=== PATIENT | female | born 1955 | race Asian ===

== ENCOUNTER 2022-05-20 08:37 | Outpatient (REF) | payer MEDICARE, SELFPAY ==
--- NOTE | ~2022-05-20 | XR_ITS ---
EXAMINATION: XR THORACIC SPINE XR LUMBAR SPINE CLINICAL INFORMATION: Ankylosing spondylitis of unspecified sites. COMPARISON: None TECHNIQUE: Thoracic spine 3 views. Lumbar spine 5 views. FINDINGS: THORACIC SPINE: There is normal thoracic kyphosis. The vertebral heights and alignment are normal. There is loss of the T5-T6 and T6-T7 disc heights with mild endplate spondylosis at the T6-T7 disc level. No aggressive lytic or sclerotic process seen. The paravertebral soft tissues are normal. There is mild dextroscoliosis of mid dorsal spine. No aggressive lytic or sclerotic process seen. CERVICAL SPINE: There is maintained cervical lordosis. There is fusion of the anterior longitudinal ligament. Findings are consistent with ankylosing spondylitis. The neural foramina are patent bilaterally. No visible acute fracture, dislocation or lytic process seen. The prevertebral soft tissues are normal. XR/XR thoracic spine 3V IMPRESSION: Ankylosing spondylitis cervical spine with straightening of cervical lordosis. No acute fracture seen. Mild dextroscoliosis upper dorsal spine. No visible acute fracture or dislocation seen.
--- NOTE | ~2022-05-20 | XR_ITS ---
EXAMINATION: XR THORACIC SPINE XR LUMBAR SPINE CLINICAL INFORMATION: Ankylosing spondylitis of unspecified sites. COMPARISON: None TECHNIQUE: Thoracic spine 3 views. Lumbar spine 5 views. FINDINGS: THORACIC SPINE: There is normal thoracic kyphosis. The vertebral heights and alignment are normal. There is loss of the T5-T6 and T6-T7 disc heights with mild endplate spondylosis at the T6-T7 disc level. No aggressive lytic or sclerotic process seen. The paravertebral soft tissues are normal. There is mild dextroscoliosis of mid dorsal spine. No aggressive lytic or sclerotic process seen. CERVICAL SPINE: There is maintained cervical lordosis. There is fusion of the anterior longitudinal ligament. Findings are consistent with ankylosing spondylitis. The neural foramina are patent bilaterally. No visible acute fracture, dislocation or lytic process seen. The prevertebral soft tissues are normal. XR/XR cervical spine 4V IMPRESSION: Ankylosing spondylitis cervical spine with straightening of cervical lordosis. No acute fracture seen. Mild dextroscoliosis upper dorsal spine. No visible acute fracture or dislocation seen.
--- NOTE | ~2022-05-20 | XR_ITS ---
EXAMINATION: XR LUMBAR SPINE XR SACROILIAC JOINTS CLINICAL INFORMATION: Ankylosing spondylitis. Back pain. COMPARISON: None TECHNIQUE: Lumbar spine 4 views. SI joints 3 views. FINDINGS: LUMBOSACRAL SPINE: There is maintained lumbar lordosis. The vertebral heights and alignment is normal. The disc heights are maintained. There is calcification of anterior and lateral longitudinal ligaments consistent with ankylosing spondylitis. There is a large left lateral bridging osteophyte L1-L2 disc level. No acute fracture or lytic process seen. SI JOINTS: The left SI joint appears fused and not visualized. The right inferior SI joint is still visualized. The upper right SI joint is not well visualized, probably fused. No acute fracture or lytic process seen. XR/XR sacroiliac joint min 3V IMPRESSION: Ankylosing spondylitis. No acute fracture or lytic process seen. There is a large left lateral bridging osteophyte L1-L2 disc level.
--- NOTE | ~2022-05-20 | XR_ITS ---
EXAMINATION: XR LUMBAR SPINE XR SACROILIAC JOINTS CLINICAL INFORMATION: Ankylosing spondylitis. Back pain. COMPARISON: None TECHNIQUE: Lumbar spine 4 views. SI joints 3 views. FINDINGS: LUMBOSACRAL SPINE: There is maintained lumbar lordosis. The vertebral heights and alignment is normal. The disc heights are maintained. There is calcification of anterior and lateral longitudinal ligaments consistent with ankylosing spondylitis. There is a large left lateral bridging osteophyte L1-L2 disc level. No acute fracture or lytic process seen. SI JOINTS: The left SI joint appears fused and not visualized. The right inferior SI joint is still visualized. The upper right SI joint is not well visualized, probably fused. No acute fracture or lytic process seen. XR/XR lumbar spine 4V min IMPRESSION: Ankylosing spondylitis. No acute fracture or lytic process seen. There is a large left lateral bridging osteophyte L1-L2 disc level.
== END 2022-05-20 08:38 | disposition home or self-care (01) ==
LOC: HO.XRAY 08:37
PROVIDERS: PCP Family Medicine; Visit Provider Student in an Organized Health Care Education/Training Program
DX: M45.0 Ankylosing spondylitis of multiple sites in spine (principal)
CPT/HCPCS: 72050; 72072; 72110; 72202; 99202

== ENCOUNTER 2022-05-20 10:07 | Outpatient (REF) | payer MEDICARE, SELFPAY ==
[2022-05-20 11:26] LABS: MANUAL DIFF FLAG NO
[2022-05-20 11:40] LABS: Basophils Percent Auto 0.8 % (0-2); Eosinophils Absolute Auto 0.2 X10*3/uL (0.0-0.4); Eosinophils Percent Auto 3.4 % (0-4); Hematocrit 32.3 % (37.0-47.0); Hemoglobin 10.4 g/dl (12.0-16.0); Imm Gran Abs Auto 0.01 X10*3/uL (0.00-0.03); Imm Gran Pct Auto 0.2 % (0.0-0.4); Lymphocytes Absolute Auto 1.9 X10*3/uL (1.2-4.9); Lymphocytes Percent Auto 38.1 % (20-40); Mean Corpuscular HGB Conc 32.2 g/dl (31.0-35.0); Mean Platelet Volume 9.6 fL (9.4-12.3); Monocytes Absolute Auto 0.3 X10*3/uL (0.1-1.2); Monocytes Percent Auto 5.9 % (2-11); Neutrophils Absolute Auto 2.6 x10*3/uL (2.0-8.3); Neutrophils Percent Auto 51.6 % (45-73); Platelet Count 253 X10*3/uL (160-400); Red Blood Count 3.59 X10*6/uL (4.20-5.50); Red Cell Distribution Width 13.3 % (11.0-16.0); White Blood Count 5.1 X10*3/uL (4.8-10.8)
[2022-05-20 12:24] LABS: Erythrocyte Sedimentation Rate 50 MM/HR (0-20)
[2022-05-20 12:32] LABS: Alanine Aminotransferase 13 U/L (0-31); Alkaline Phosphatase 85 U/L (39-117); Anion Gap 13 (12-20); Aspartate Amino Transferase 22 U/L (5-31); Bilirubin Total 0.4 mg/dL (0.0-1.0); Blood Urea Nitrogen 21 mg/dL (9-16); C Reactive Protein 0.93 mg/dL (< or = 0.50); Calcium 8.7 mg/dL (8.4-10.2); Carbon Dioxide 27 mmol/L (22-29); Chloride 104 mmol/L (96-108); Estimated Glomerular Filt Rate > 60; Glucose Random 88 mg/dL (60-115); Potassium 4.3 mmol/L (3.3-5.1); Sodium 140 mmol/L (135-145)
[2022-05-20 14:26] LABS: HBS Num1 > 1000.00 mIU/mL (0-7.99); HBc Num1 7.21 S/CO (0.00-0.79); HBsAGNum1 0.28 S/CO (0.00-0.99); Hepatitis A Antibody IgM 0.35 Index (0-0.79); Hepatitis B Surface Antigen Negative (Negative); ~HepC Num1 0.19 S/CO (0.00-0.79); ~Hepatitis A Antibody IgM Nonreactive (Nonreactive); ~Hepatitis B Surface Antibody REACTIVE (Nonreactive); ~Hepatitis C Antibody Nonreactive (Nonreactive)
[2022-05-20 15:15] LABS: HBc Num2 7.16 S/CO; HBc Num3 7.09 S/CO; Hepatitis B Core Antibody Reactive (Nonreactive)
[2022-05-22 14:19] LABS: TS Negative Control Passed; TS Panel A 0; TS Panel B 0; TS Positive Control Passed; TSpotTB Negative (Negative)
[2022-05-23 14:39] LABS: IgA 272 mg/dL (70-320); IgG 1379 mg/dL (600-1540); IgM 91 mg/dL (50-300)
[2022-05-23 18:44] LABS: Prot Elec - Albumin 4.3 g/dL (3.8-4.8); Prot Elec - Alpha1 0.3 g/dL (0.2-0.3); Prot Elec - Alpha2 0.7 g/dL (0.5-0.9); Prot Elec - Beta 1 0.4 g/dL (0.4-0.6); Prot Elec - Beta 2 0.3 g/dL (0.2-0.5); Prot Elec - Gamma 1.2 g/dL (0.8-1.7); Prot Elec - Total Protein 7.2 g/dL (6.1-8.1)
[2022-05-26 13:58] LABS: HLA B27 Negative (Negative)
== END 2022-05-20 10:08 | disposition home or self-care (01) ==
LOC: HO.10HDL 10:07
PROVIDERS: Visit Provider Student in an Organized Health Care Education/Training Program
DX: Z11.7 Encounter for testing for latent tuberculosis infection (principal); M45.9 Ankylosing spondylitis of unspecified sites in spine; Z20.2 Contact with and (suspected) exposure to infections with a predominantly sexual mode of transmission; Z11.59 Encounter for screening for other viral diseases
CPT/HCPCS: 36415; 80053; 82784; 84165; 85025; 85652; 86140; 86334; 86481; 86704; 86706; 86709; 86803; 86812; 87340

== ENCOUNTER 2022-07-16 14:00 | Outpatient (RCR) | payer MEDICARE, SELFPAY ==
--- NOTE | 2022-06-24 15:46 | MHC.PT.EP ---
[facility] [place] Office [place] Office [place] Office [address] Samantha Zurita [address] [phone] F: [phone] F: [phone] F: [phone] F: [phone] Physical Therapy Plan of Care Date of Evaluation: Date of Surgery: Diagnosis: ANKYLOSING SPONDYLITIS Assessment: 67 YO FEMALE REF TO PT W DX OF ANKYLOSING SPONDYLITIS x 30 YRS- SHE RESIDES W HER SPOUSE-> HE MASSAGES HER NECK AND LB FOR SX EASE- Pt HAS SIGNIF ROM DEFICTS IN HER CERVICAL AND LUMBAR REGIONS, (+) SOFT TISSUE TIGHTNESS IN HER CERV/UPPER BACK MM WELL Rt > Lt LUMBAR PS, PAIN AND INCR GUARDED CERV MOTION W BED MOB AND GAIT MECH , WFL AROM IN IVAN UEs AND LEs. SHE MAY BENEFIT FROM A TRIAL OF PT TO EASE SOFT TISSUE RESTRICTION WITH THE POTENTIAL TO IMPROVE ROM AND FUNCT ACTIVITY ALEK W ADLs, DEV A HEP, AND SX MGMT TECHN. Frequency and Duration: The patient will be seen 2 x WK x 5 WKS Short Term Goals: *DECREASE CERV/ LB PAIN REDUCE TISSUE TENSION IN CERV MM AND Rt > Lt LUMBAR PS MM *INITIATE HEP TO ADDRESS CERV AND TRUNK MOBILITY *IMPROVE SLEEP ED Pt AND SPOUSE RE POSITIONING OPTIONS Shelter Goals: * Pt AND HER SPOUSE INDEP W HEP AND SELF- SX MGMT STRATEGIES *Pt IMPROVE FUNCT MOB/ ACTIVITY ALEK EVIDENCED W IMPROVED OSWESTRY SCORE (AT EVAL 25/50) Treatment Plan: Modalities to reduce pain, spasms and effusion. Manual therapy to restore motion and function. Therapeutic exercise to improve strength and flexibility. Neuromuscular re-education for posture and balance. Therapeutic activities to return to functional activities of daily living. Electronically signed by: NICOLAS FELIX,PT Please sign and return to therapist. Thank you for your referral.
--- NOTE | 2022-07-16 15:25 | MHC.PT.DC ---
[facility] [place] Office [place] Office [place] Office [address] Samantha Zurita [address] [phone] F: [phone] F: [phone] F: [phone] F: [phone] Physical Therapy Discharge Report Diagnosis: ANKYLOSING SPONDYLITIS Date of Surgery: Date of Evaluation: 06/24/22 Date of Discharge: Treatments to Date: 6 Cancellations to Date: 0 No Shows to Date: 0 Discharge Status: Discharge Summary: Pt FEELS READY TO CONT W HER HEP AT THIS TIME- SHE HAS A GREAT UNDERSTANDING OF THE IMPORTANCE OF STRETCHING/ MOBILITY/ POSTURE/ BODY MECH W HER SX MGMT- SHE HAS IMPROVED CERV AROM AND LUMBAR - HER HIP FLEXIB AND GLUTE ACTIV/ STRENGTH HAVE INCR- SHE HAS SOME LIMITATIONS W POSITIONS AND ALEK DUE TO STRENAL/ XIPHOID AREA PAIN. SHE IS D/C'D THIS DATE W HEP Electronically signed by: Please sign and return to therapist. Thank you for your referral.
== END 2022-07-16 15:26 | disposition home or self-care (01) ==
LOC: HO.PT 14:00
PROVIDERS: PCP Internal Medicine; Visit Provider Student in an Organized Health Care Education/Training Program
DX: M45.9 Ankylosing spondylitis of unspecified sites in spine (principal)
CPT/HCPCS: 97110; 97140; 97162; 97530

== ENCOUNTER → 2022-07-23 14:00 | Outpatient (BNVA) | payer MEDICARE, SELFPAY | PROVIDERS: PCP Internal Medicine; Visit Provider Student in an Organized Health Care Education/Training Program | DX: M45.0 Ankylosing spondylitis of multiple sites in spine (principal) | CPT/HCPCS: 99212 ==

== ENCOUNTER 2022-08-14 11:01 | Outpatient (REF) | payer MEDICARE, SELFPAY | END 2022-08-14 11:02 | disposition home or self-care (01) | LOC: HO.MDS 11:01 | PROVIDERS: Visit Provider Student in an Organized Health Care Education/Training Program | DX: M45.0 Ankylosing spondylitis of multiple sites in spine (principal) | CPT/HCPCS: 96365; J1602 ==

== ENCOUNTER 2022-09-11 10:48 | Outpatient (REF) | payer MEDICARE, SELFPAY | END 2022-09-11 10:49 | disposition home or self-care (01) | LOC: HO.MDS 10:48 | PROVIDERS: Visit Provider Student in an Organized Health Care Education/Training Program | DX: M45.0 Ankylosing spondylitis of multiple sites in spine (principal) | CPT/HCPCS: 96365; J1602 ==

== ENCOUNTER 2022-10-22 10:22 | Outpatient (REF) | payer MEDICARE, SELFPAY ==
[2022-10-22 10:43] LABS: MANUAL DIFF FLAG NO
[2022-10-22 11:51] LABS: Basophils Percent Auto 0.9 % (0-2); Eosinophils Absolute Auto 0.1 X10*3/uL (0.0-0.4); Eosinophils Percent Auto 2.4 % (0-4); Hematocrit 37.4 % (37.0-47.0); Hemoglobin 11.8 g/dl (12.0-16.0); Imm Gran Abs Auto 0.01 X10*3/uL (0.00-0.03); Imm Gran Pct Auto 0.2 % (0.0-0.4); Lymphocytes Absolute Auto 2.2 X10*3/uL (1.2-4.9); Lymphocytes Percent Auto 48.5 % (20-40); Mean Corpuscular HGB Conc 31.6 g/dl (31.0-35.0); Mean Corpuscular Hemoglobin 28.9 pg (27.0-33.0); Mean Corpuscular Volume 91.7 fL (80.0-98.0); Mean Platelet Volume 9.7 fL (9.4-12.3); Monocytes Absolute Auto 0.4 X10*3/uL (0.1-1.2); Monocytes Percent Auto 8.5 % (2-11); Neutrophils Absolute Auto 1.8 x10*3/uL (2.0-8.3); Neutrophils Percent Auto 39.5 % (45-73); Platelet Count 240 X10*3/uL (160-400); Red Blood Count 4.08 X10*6/uL (4.20-5.50); Red Cell Distribution Width 14.3 % (11.0-16.0); White Blood Count 4.6 X10*3/uL (4.8-10.8)
[2022-10-22 12:26] LABS: Alanine Aminotransferase 14 U/L (0-31); Albumin Level 4.2 g/dL (3.5-5.0); Alkaline Phosphatase 75 U/L (39-117); Anion Gap 15 (12-20); Aspartate Amino Transferase 20 U/L (5-31); Bilirubin Total 0.3 mg/dL (0.0-1.0); Blood Urea Nitrogen 10 mg/dL (9-16); C Reactive Protein 0.62 mg/dL (< or = 0.50); Calcium 9.1 mg/dL (8.4-10.2); Carbon Dioxide 25 mmol/L (22-29); Chloride 104 mmol/L (96-108); Estimated Glomerular Filt Rate > 60; Glucose Random 69 mg/dL (60-115); Potassium 4.4 mmol/L (3.3-5.1); Sodium 140 mmol/L (135-145); Total Protein 7.5 g/dL (6.5-8.0)
[2022-10-22 12:34] LABS: Erythrocyte Sedimentation Rate 19 MM/HR (0-20)
== END 2022-10-22 10:23 | disposition home or self-care (01) ==
LOC: HO.LAB 10:22
PROVIDERS: PCP Internal Medicine; Visit Provider Student in an Organized Health Care Education/Training Program
DX: M45.9 Ankylosing spondylitis of unspecified sites in spine (principal)
CPT/HCPCS: 36415; 80053; 85025; 85652; 86140

== ENCOUNTER 2022-10-28 15:23 | Outpatient (AMB) | payer MEDICARE, SELFPAY ==
[2022-10-28 15:25] VITALS: BP 110/64; PULSE 81; TEMP 36.8; O2SAT 99; BMI 19.9
--- NOTE | 2022-10-28 15:25 | A.OFFVIS_ITS ---
Intake Vital Signs 10/28/22 15:25 Height 5 ft 1 in Weight 105 lb 2.568 oz BMI 19.9 BP 110/64 Blood Pressure Location Rt brachial Position Sitting Pulse 81 Pulse Source Pulse Oximeter Temp 98.2 F Temp Source Skin Pulse Oximetry (%) 99 Intake Visit Reasons: Intake Note: Pt seen today for follow up. States she feels much better after simponi infusion. Harness Builder Required: No Accompanied by: Spouse Allergies morphine Allergy (Severe, Verified 10/28/22 15:29) Vomiting Medication List - Last Reconciled 10/28/22 by Jeff Jones MD ascorbate calcium (vitamin C) 500 mg PO DAILY PRN golimumab (Simponi ARIA) 2 mg/kg at weeks 0, 4, every 8 weeks thereafter. ibuprofen 600 mg PO Q8H PRN HPI HPI Comments History of Present Illness Details 67-year-old female with ankylosing spondylitis returns for follow-up. Doing much better overall since starting Simponi infusions. She received the 2 loading dosing doses. States that her back pain and stiffness is significantly better as well as her chest pain. She is now able to do ballroom dancing. Does not take any NSAIDs for pain. Initial history: This is a 67-year-old female the past medical history of ankylosing spondylitis presents for evaluation. 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 Patient states that started having spinal pain and stiffness more than 30 years ago. She stated that she was on some medications, she does not recall the name for many years. She saw Dr. Enriquez back in October of 2021 and was started on Humira. Per patient and she feels that she has more energy overall patient however continues to have generalized back pain and stiffness throughout the day, stiffness is generally worse in the morning lasting at least 2-3 hours until it improves. She takes ibuprofen about once a month with some relief. Per patient has had intermittent episodes of knee and elbow swelling over the years. There is no history suggestive of uveitis or IBD. Denied ever doing physical therapy. Since September of 2021 which she started having a skin rash in front of her right ear and above her upper lip. She took [id number] steroid cream with some relief, she was then evaluated by a housekeeping room inspector and prescribed mupirocin cream without relief. She continues to have the same rash. Denies known history of psoriasis. [facility] Medical History Osteoporosis Surgical History Hx of plastic surgery Family History Brother Heart attack Mother Heart attack Father No problems noted. Social History Household Members: Spouse Alcohol intake: never Patient Tobacco Use Status: Never used Tobacco Current occupational status: unemployed Review of Systems Musc Denies back pain Physical Exam Vital Signs: Last Vital Signs Temp 98.2 F 10/28/22 15:25 Pulse 81 10/28/22 15:25 BP 110/64 10/28/22 15:25 Pulse Ox 99 10/28/22 15:25 BMI result Body Mass Index 19.9 Const General: cooperative, healthy appearing and comfortable Nutritional Appearance: average body habitus and well nourished Orientation/consciousness: patient oriented x3 Limitations: no limitations HEENT Head: Yes normocephalic and Yes atraumatic Resp Effort & Inspection: normal respiratory effort and able to speak in complete se ntences Back/Spine/Pelvis Other: Efraín test 10-11 cm Significantly limited lateral flexion test bilaterally, almost no flexion Barely any neck rotation Neuro General: patient oriented x3 Extrem Other: No active peripheral synovitis Assessment & Plan Assessment & Plan (1) Ankylosing spondylitis: Comment: diagnosed in the Humira started around 10/2021 partially effective DC 08/12 Simponi infusions 08/12 quite effective Code(s): M45.9 - Ankylosing spondylitis of unspecified sites in spine Qualifiers: Ankylosing spondylitis location: multiple sites in spine Qualified Code(s): M45.0 - Ankylosing spondylitis of multiple sites in spine Plan: This is a 67-year-old female with a past medical history of ankylosing spondylitis who presents for follow-up. Doing much better overall since Humira was switched to Simponi infusions. Patient received 2 loading doses. Inflammatory markers trending down. Continue Simponi infusions every 2 months 2 milligram/kilogram every 8 weeks. Continue exercises Labs before next visit in 3 months (2) Osteoporosis: Comment: DEXA 01/2020 L-spine region was excluded due to artifact Right femora T-score -2.7 Total hip score T-score-1.7 1/3 radius T-score -3.2 When compared to 2016 there has been a significant decrease of 6.9% at the total hip Code(s): M81.0 - Age-related osteoporosis without current pathological fracture Qualifiers: Osteoporosis type: age-related Presence of current pathological fracture: without current pathological fracture Qualified Code(s): M81.0 - Age- related osteoporosis without current pathological fracture Plan: Discussed nature of osteoporosis and its associated risks. Will get a new DEXA scan to establish a new baseline before starting therapy. Plan I spent 26 minutes reviewing patient's chart, evaluating patient, ordering diagnostic workup, counseling patient and documenting in the chart Orders: Orders Comprehensive Met. Panel 3 Months M45.9 - Ankylosing spondylitis of unspecified sites in spine C Reactive Protein 3 Months M45.9 - Ankylosing spondylitis of unspecified sites in spine Complete Blood Count Auto Diff 3 Months M45.9 - Ankylosing spondylitis of unspecified sites in spine Erythrocyte Sedimentation Rate 3 Months M45.9 - Ankylosing spondylitis of unspecified sites in spine XR DEXA axial skeleton Today M81.0 - Age-related osteoporosis without current pathological fracture Coding Level of Care Code Est Pt Level 4 (09332) Diagnoses Ankylosing spondylitis M45.0 Ankylosing spondylitis location: multiple sites in spine Osteoporosis M81.0 Osteoporosis type: age-related Presence of current pathological fracture: without current pathological fracture
== END 2022-10-28 16:15 | disposition home or self-care (01) ==
PROVIDERS: PCP Internal Medicine; Visit Provider Student in an Organized Health Care Education/Training Program
DX: M45.0 Ankylosing spondylitis of multiple sites in spine (principal); M81.0 Age-related osteoporosis without current pathological fracture
CPT/HCPCS: 99214

== ENCOUNTER → 2022-10-28 15:23 | Outpatient (BNVA) | payer MEDICARE, SELFPAY | PROVIDERS: PCP Internal Medicine; Visit Provider Student in an Organized Health Care Education/Training Program | DX: M45.0 Ankylosing spondylitis of multiple sites in spine (principal); M81.0 Age-related osteoporosis without current pathological fracture | CPT/HCPCS: 99212 ==

== ENCOUNTER 2022-11-06 11:06 | Outpatient (REF) | payer MEDICARE, SELFPAY | END 2022-11-06 11:07 | disposition home or self-care (01) | LOC: HO.MDS 11:06 | PROVIDERS: Visit Provider Student in an Organized Health Care Education/Training Program | DX: M45.0 Ankylosing spondylitis of multiple sites in spine (principal) | CPT/HCPCS: 96365; J1602 ==

== ENCOUNTER 2022-11-12 13:25 | Outpatient (REF) | payer MEDICARE, SELFPAY | END 2022-11-12 13:26 | disposition home or self-care (01) | LOC: HO.MAMMO 13:25 | PROVIDERS: PCP Family Medicine; Visit Provider Student in an Organized Health Care Education/Training Program | DX: Z13.820 Encounter for screening for osteoporosis (principal); Z78.0 Asymptomatic menopausal state; M81.0 Age-related osteoporosis without current pathological fracture | CPT/HCPCS: 77080 ==

== ENCOUNTER 2023-01-01 11:00 | Outpatient (REF) | payer MEDICARE, SELFPAY | END 2023-01-01 11:01 | disposition home or self-care (01) | LOC: HO.MDS 11:00 | PROVIDERS: Visit Provider Student in an Organized Health Care Education/Training Program | DX: M45.0 Ankylosing spondylitis of multiple sites in spine (principal) | CPT/HCPCS: 96365; J1602 ==

== ENCOUNTER 2023-02-26 10:10 | Outpatient (REF) | payer MEDICARE, SELFPAY ==
[2023-02-26 10:43] LABS: MANUAL DIFF FLAG NO
[2023-02-26 11:24] LABS: Basophils Percent Auto 0.6 % (0-2); Eosinophils Absolute Auto 0.1 X10*3/uL (0.0-0.4); Hematocrit 36.3 % (37.0-47.0); Hemoglobin 11.7 g/dl (12.0-16.0); Imm Gran Abs Auto 0.01 X10*3/uL (0.00-0.03); Imm Gran Pct Auto 0.1 % (0.0-0.4); Lymphocytes Absolute Auto 3.6 X10*3/uL (1.2-4.9); Lymphocytes Percent Auto 49.7 % (20-40); Mean Corpuscular HGB Conc 32.2 g/dl (31.0-35.0); Mean Corpuscular Hemoglobin 29.6 pg (27.0-33.0); Mean Corpuscular Volume 91.9 fL (80.0-98.0); Mean Platelet Volume 9.8 fL (9.4-12.3); Monocytes Absolute Auto 0.6 X10*3/uL (0.1-1.2); Monocytes Percent Auto 8.7 % (2-11); Neutrophils Absolute Auto 2.8 x10*3/uL (2.0-8.3); Neutrophils Percent Auto 38.9 % (45-73); Platelet Count 258 X10*3/uL (160-400); Red Blood Count 3.95 X10*6/uL (4.20-5.50); Red Cell Distribution Width 13.4 % (11.0-16.0); White Blood Count 7.1 X10*3/uL (4.8-10.8)
[2023-02-26 11:50] LABS: Alanine Aminotransferase 10 U/L (0-31); Albumin Level 4.4 g/dL (3.5-5.0); Alkaline Phosphatase 79 U/L (39-117); Anion Gap 14 (12-20); Aspartate Amino Transferase 20 U/L (5-31); Bilirubin Total 0.6 mg/dL (0.0-1.0); Blood Urea Nitrogen 17 mg/dL (9-16); C Reactive Protein 0.59 mg/dL (< or = 0.50); Calcium 9.4 mg/dL (8.4-10.2); Carbon Dioxide 29 mmol/L (22-29); Chloride 101 mmol/L (96-108); Estimated Glomerular Filt Rate > 60; Glucose Random 87 mg/dL (60-115); Potassium 3.9 mmol/L (3.3-5.1); Sodium 140 mmol/L (135-145); Total Protein 8.1 g/dL (6.5-8.0)
[2023-02-26 12:22] LABS: Erythrocyte Sedimentation Rate 34 MM/HR (0-20)
== END 2023-02-26 10:11 | disposition home or self-care (01) ==
LOC: HO.LAB 10:10
PROVIDERS: Visit Provider Student in an Organized Health Care Education/Training Program
DX: M45.9 Ankylosing spondylitis of unspecified sites in spine (principal)
CPT/HCPCS: 36415; 80053; 85025; 85652; 86140

== ENCOUNTER 2023-02-26 10:56 | Outpatient (REF) | payer MEDICARE, SELFPAY | END 2023-02-26 10:57 | disposition home or self-care (01) | LOC: HO.MDS 10:56 | PROVIDERS: PCP Family Medicine; Visit Provider Student in an Organized Health Care Education/Training Program | DX: M45.0 Ankylosing spondylitis of multiple sites in spine (principal) | CPT/HCPCS: 96365; J1602 ==

== ENCOUNTER 2023-02-27 13:24 | Outpatient (AMB) | payer MEDICARE, SELFPAY ==
--- NOTE | 2023-02-27 13:37 | A.OFFVIS_ITS ---
Intake Vital Signs 02/27/23 13:43 Height 5 ft 1 in Weight 104 lb 11.513 oz BMI 19.8 BP 106/60 Blood Pressure Location Lt brachial Position Sitting Pulse 70 Pulse Source Pulse Oximeter Temp 97 F Temp Source Skin Pulse Oximetry (%) 96 Oxygen Delivery Method Room Air Intake Visit Reasons: Intake Note: Pt last seen 10/28/22, presents today for follow up and test results. Aircraft Mechanic Required: No Accompanied by: Spouse Allergies morphine Allergy (Severe, Verified 02/27/23 13:37) Vomiting Medication List - Last Reconciled 02/27/23 by Jeff Jones MD ascorbate calcium (vitamin C) 500 mg PO DAILY PRN golimumab (Simponi ARIA) 2 mg/kg at weeks 0, 4, every 8 weeks thereafter. ibuprofen 600 mg PO Q8H PRN HPI HPI Comments History of Present Illness Details 68-year-old female with ankylosing spond ylitis returns for follow-up. On Simponi infusions. Doing well overall. No new complaints. Initial history: This is a 67-year-old female the past medical history of ankylosing spondylitis presents for evaluation. 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 Patient states that started having spinal pain and stiffness more than 30 years ago. She stated that she was on some medications, she does not recall the name for many years. She saw Dr. Enriquez back in October of 2021 and was started on Humira. Per patient and she feels that she has more energy overall patient however continues to have generalized back pain and stiffness throughout the day, stiffness is generally worse in the morning lasting at least 2-3 hours until it improves. She takes ibuprofen about once a month with some relief. Per patient has had intermittent episodes of knee and elbow swelling over the years. There is no history suggestive of uveit is or IBD. Denied ever doing physical therapy. Since September of 2021 which she started having a skin rash in front of her right ear and above her upper lip. She took [id number] steroid cream with some relief, she was then evaluated by a television and radio repairer and prescribed mupirocin cream without relief. She continues to have the same rash. Denies known history of psoriasis. [facility] Medical History Osteoporosis Surgical History Hx of plastic surgery Family History Brother Heart attack Mother Heart attack Father No problems noted. Social History Household Members: Spouse Alcohol intake: never Patient Tobacco Use Status: Never used Tobacco Current occupational status: unemployed Review of Systems Musc Denies back pain Physical Exam Vital Signs: Last Vital Signs Temp 97 F 02/27/23 13:43 Pulse 70 02/27/23 13:43 BP 106/60 02/27/23 13:43 Pulse Ox 96 02/27/23 13:43 Oxygen Delivery Method Room Air 02/27/23 13:43 BMI result Body Mass Index 19.8 Const General: cooperative, healthy appearing and comfortable Nutritional Appearance: average body habitus and well nourished Orientation/consciousness: patient oriented x3 Limitations: no limitations HEENT Head: Yes normocephalic and Yes atraumatic Resp Effort & Inspection: normal respiratory effort and able to speak in complete sentences Auscultation: clear to auscultation bilaterally Cardio Rate: regular rate Rhythm: regular rhythm GI Inspection: No distended Palpation (GI): Soft to palpation and nontender Back/Spine/Pelvis Other: Efraín test 10-11 cm Significantly limited lateral flexion test bilaterally, almost no flexion Barely any neck rotation Neuro General: patient oriented x3 Extrem Other: No active peripheral synovitis Assessment & Plan Assessment & Plan (1) Ankylosing spondylitis: Comment: diagnosed in the Humira started around 10/2021 partially effective DC 08/12 Simponi infusions 08/12 quite effective Code(s): M45.9 - Ankylosing spondylitis of unspecified sites in spine Qualifiers: Ankylosing spondylitis location: multiple sites in spine Qualified Code(s): M45.0 - Ankylosing spondylitis of multiple sites in spine Plan: This is a 68-year-old female with a past medical history of ankylosing spondylitis who presents for follow-up. Doing much better overall since Humira was switched to Simponi infusions. Continue Simponi infusions every 2 months 2 milligram/kilogram every 8 weeks. Continue exercises Labs before next visit in 4 months (2) Osteoporosis: Comment: DEXA 01/2020 L-spine region was excluded due to artifact Right femora T-score -2.7 Total hip score T-score-1.7 03/25 radius T-score -3.2 DEXA 10/2022 Left femur neck T-score-2.8 Left femur total -2.0 AP spine L3-L4 excluding L1 and L2 T-score -5.1 Code(s): M81.0 - Age-related osteoporosis without current pathological fracture Qualifiers: Osteoporosis type: age-related Presence of current pathological fracture: without current pathological fracture Qualified Code(s): M81.0 - Age- related osteoporosis without current pathological fracture Plan: Discussed nature of osteoporosis and its associated risks. Who will need to start antiresorptive therapy. Discussed risks and benefits of alendronate. Start alendronate 70 mg once weekly. Will check vitamin-D levels before next visit Discussed weight-bearing exercises and avoiding falls. Plan I spent 26 minutes reviewing patient's chart, evaluating patient, ordering diagnostic workup, counseling patient and documenting in the chart Orders: Orders Complete Blood Count Auto Diff 4 Months M45.9 - Ankylosing spondylitis of unspecified sites in spine Comprehensive Met. Panel 4 Months M45.9 - Ankylosing spondylitis of unspecified sites in spine Erythrocyte Sedimentation Rate 4 Months M45.9 - Ankylosing spondylitis of unspecified sites in spine Vitamin D 25-OH (D2 and D3) 4 Months Z13.21 - Encounter for screening for nutritional disorder C Reactive Protein 4 Months M45.9 - Ankylosing spondylitis of unspecified sites in spine Medications: New alendronate Take 1 tab once weekly, 1st thing in the morning, on an empty stomach, with a large glass of water, at least 6 oz and stay upright for 30 minutes 70 mg PO QWEEK 12 tabs 1RF Coding Level of Care Code Est Pt Level 4 (03774) Diagnoses Ankylosing spondylitis of multiple sites in spine M45.0 Ankylosing spondylitis location: multiple sites in spine Age-related osteoporosis without current pathological fracture M81.0 Osteoporosis type: age-related Presence of current pathological fracture: without current pathological fracture
[2023-02-27 13:43] VITALS: BP 106/60; PULSE 70; TEMP 36.1; O2SAT 96; BMI 19.8
== END 2023-02-27 14:06 | disposition home or self-care (01) ==
PROVIDERS: PCP Family Medicine; Visit Provider Student in an Organized Health Care Education/Training Program
DX: M45.0 Ankylosing spondylitis of multiple sites in spine (principal); M81.0 Age-related osteoporosis without current pathological fracture
CPT/HCPCS: 99214

== ENCOUNTER → 2023-02-27 13:24 | Outpatient (BNVA) | payer MEDICARE, SELFPAY | PROVIDERS: PCP Family Medicine; Visit Provider Student in an Organized Health Care Education/Training Program | DX: M45.0 Ankylosing spondylitis of multiple sites in spine (principal); M81.0 Age-related osteoporosis without current pathological fracture | CPT/HCPCS: 99212 ==

== ENCOUNTER 2023-04-23 10:57 | Outpatient (REF) | payer MEDICARE, SELFPAY | END 2023-04-23 10:58 | disposition home or self-care (01) | LOC: HO.MDS 10:57 | PROVIDERS: Visit Provider Student in an Organized Health Care Education/Training Program | DX: M45.0 Ankylosing spondylitis of multiple sites in spine (principal) | CPT/HCPCS: 96365; J1602 ==

== ENCOUNTER 2023-06-18 10:54 | Outpatient (REF) | payer MEDICARE, SELFPAY ==
[2023-06-18 11:00] VITALS: BP 140/76; PULSE 74; RESP 20; TEMP 36.9; O2SAT 99
== END 2023-06-18 10:55 | disposition home or self-care (01) ==
LOC: HO.MDS 10:54
PROVIDERS: Visit Provider Student in an Organized Health Care Education/Training Program
DX: M45.0 Ankylosing spondylitis of multiple sites in spine (principal)
CPT/HCPCS: 96365; J1602

== ENCOUNTER 2023-06-24 09:12 | Outpatient (REF) | payer MEDICARE, SELFPAY ==
[2023-06-24 09:42] LABS: MANUAL DIFF FLAG NO
[2023-06-24 10:03] LABS: Basophils Percent Auto 0.8 % (0-2); Eosinophils Absolute Auto 0.2 X10*3/uL (0.0-0.4); Eosinophils Percent Auto 3.6 % (0-4); Hematocrit 38.3 % (37.0-47.0); Hemoglobin 12.3 g/dl (12.0-16.0); Imm Gran Abs Auto 0.01 X10*3/uL (0.00-0.03); Imm Gran Pct Auto 0.2 % (0.0-0.4); Lymphocytes Percent Auto 57.1 % (20-40); Mean Corpuscular HGB Conc 32.1 g/dl (31.0-35.0); Mean Corpuscular Hemoglobin 29.5 pg (27.0-33.0); Mean Corpuscular Volume 91.8 fL (80.0-98.0); Mean Platelet Volume 9.7 fL (9.4-12.3); Monocytes Absolute Auto 0.3 X10*3/uL (0.1-1.2); Monocytes Percent Auto 6.1 % (2-11); Neutrophils Absolute Auto 1.7 x10*3/uL (2.0-8.3); Neutrophils Percent Auto 32.2 % (45-73); Platelet Count 243 X10*3/uL (160-400); Red Blood Count 4.17 X10*6/uL (4.20-5.50); Red Cell Distribution Width 13.5 % (11.0-16.0); White Blood Count 5.2 X10*3/uL (4.8-10.8)
[2023-06-24 10:39] LABS: Erythrocyte Sedimentation Rate 22 MM/HR (0-20)
[2023-06-24 11:16] LABS: Alanine Aminotransferase 12 U/L (0-31); Albumin Level 4.3 g/dL (3.5-5.0); Alkaline Phosphatase 68 U/L (39-117); Anion Gap 11 (12-20); Aspartate Amino Transferase 22 U/L (5-31); Bilirubin Total 0.5 mg/dL (0.0-1.0); Blood Urea Nitrogen 15 mg/dL (9-16); C Reactive Protein 0.12 mg/dL (< or = 0.50); Calcium 9.2 mg/dL (8.4-10.2); Carbon Dioxide 29 mmol/L (22-29); Chloride 104 mmol/L (96-108); Estimated Glomerular Filt Rate > 60; Glucose Random 94 mg/dL (60-115); Potassium 4.6 mmol/L (3.3-5.1); Sodium 139 mmol/L (135-145); Total Protein 7.7 g/dL (6.5-8.0)
[2023-06-28 16:08] LABS: Vitamin D 25-OH, D2 <4 ng/mL; Vitamin D 25-OH, D3 29 ng/mL; Vitamin D 25-OH, Total 29 ng/mL (30-100)
== END 2023-06-24 09:13 | disposition home or self-care (01) ==
LOC: HO.LAB 09:12
PROVIDERS: Visit Provider Student in an Organized Health Care Education/Training Program
DX: M45.9 Ankylosing spondylitis of unspecified sites in spine (principal); Z13.21 Encounter for screening for nutritional disorder
CPT/HCPCS: 36415; 80053; 82306; 85025; 85652; 86140

== ENCOUNTER 2023-06-29 12:56 | Outpatient (AMB) | payer MEDICARE, SELFPAY ==
--- NOTE | 2023-06-29 12:58 | A.OFFVIS_ITS ---
Intake Vital Signs 06/29/23 12:59 Height 5 ft 1 in Weight 104 lb 11.513 oz BMI 19.8 BP 108/68 Blood Pressure Location Rt brachial Position Sitting Pulse 74 Pulse Source Pulse Oximeter Pulse Oximetry (%) 98 Oxygen Delivery Method Room Air Intake Visit Reasons: /cm Intake Note: Patient last seen 02/27/23 presents today for follow up and test results. Glove Stitcher Required: No Accompanied by: Spouse Allergies morphine Allergy (Severe, Verified 06/29/23 13:05) Vomiting Medication List - Last Reconciled 06/29/23 by Jeff Jones MD ascorbate calcium (vitamin C) 500 mg PO DAILY PRN golimumab (Simponi ARIA) 2 mg/kg at weeks 0, 4, every 8 weeks thereafter. ibuprofen 600 mg PO Q8H PRN HPI HPI Comments History of Present Illness Details 68-year-old female with ankylosing spond ylitis returns for follow-up. On Simponi infusions. Doing well overall. No new complaints. Patient states that she took alendronate briefly and discontinued it due to GI upset. Has not had any falls. Does not take vitamin-D Initial history: This is a 67-year-old female the past medical history of ankylosing spondylitis presents for evaluation. 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 Patient states that started having spinal pain and stiffness more than 30 years ago. She stated that she was on some medications, she does not recall the name for many years. She saw Dr. Enriquez back in October of 2021 and was started on Humira. Per patient and she feels that she has more energy overall patient however continues to have generalized back pain and stiffness throughout the day, stiffness is generally worse in the morning lasting at least 2-3 hours until it improves. She takes ibuprofen about once a month with some relief. Per patient has had intermittent episodes of knee and elbow swelling over the years. There is no history suggestive of uveitis or IBD. Denied ever doing physical therapy. Since September of 2021 which she started having a skin rash in front of her right ear and above her upper lip. She took txia-omg-[id number] steroid cream with some relief, she was then evaluated by a petrophysical engineer and prescribed mupirocin cream without relief. She continues to have the same rash. Denies known history of psoriasis. [facility] Medical History Osteoporosis Surgical History Hx of plastic surgery Family History Brother Heart attack Mother Heart attack Father No problems noted. Social History Household Members: Spouse Alcohol intake: never Patient Tobacco Use Status: Never used Tobacco Current occupational status: unemployed Review of Systems [facility] [place] Denies back pain Physical Exam Vital Signs: Last Vital Signs Pulse 74 06/29/23 12:59 BP 108/68 06/29/23 12:59 Pulse Ox 98 06/29/23 12:59 Oxygen Delivery Method Room Air 06/29/23 12:59 BMI result Body Mass Index 19.8 Const General: cooperative, healthy appearing and comfortable Nutritional Appearance: average body habitus and well nourished Orientation/consciousness: patient oriented x3 Limitations: no limitations HEENT Head: Yes normocephalic and Yes atraumatic Resp Effort & Inspection: normal respiratory effort and able to speak in complete sentences Auscultation: clear to auscultation bilaterally Cardio Rate: regular rate Rhythm: regular rhythm GI Inspection: No distended Palpation (GI): Soft to palpation and nontender Back/Spine/Pelvis Other: Efraín test 10-11 cm Significantly limited lateral flexion test bilaterally, almost no flexion Negative RIVAS test bilaterally Negative straight leg raise test bilaterally Barely any neck rotation Neuro General: patient oriented x3 Extrem Other: No active peripheral synovitis Assessment & Plan Assessment & Plan (1) Ankylosing spondylitis: Comment: diagnosed in the Humira started around 10/2021 partially effective DC 08/12 Simponi infusions 08/12 quite effective Code(s): M45.9 - Ankylosing spondylitis of unspecified sites in spine Qualifiers: Ankylosing spondylitis location: multiple sites in spine Qualified Code(s): M45.0 - Ankylosing spondylitis of multiple sites in spine Plan: This is a 68-year-old female with a past medical history of ankylosing spondylitis who presents for follow-up. Doing very well on Actemra infusions Continue Simponi infusions every 2 months 2 milligram/kilogram every 8 weeks. Continue exercises Labs before next visit in 4 months (2) Osteoporosis: Comment: DEXA 01/2020 L-spine region was excluded due to artifact Right femora T-score -2.7 Total hip score T-score-1.7 1/3 radius T-score -3.2 DEXA 10/2022 Left femur neck T-score-2.8 Left femur total -2.0 AP spine L3-L4 excluding L1 and L2 T-score -5.1 Alendronate 02/2023 self DC few weeks after Code(s): M81.0 - Age-related osteoporosis without current pathological fracture Qualifiers: Osteoporosis type: age-related Presence of current pathological fracture: without current pathological fracture Qualified Code(s): M81.0 - Age- related osteoporosis without current pathological fracture Plan: Discussed nature of osteoporosis and its associated risks. Patient took alendronate few weeks and discontinued it due to GI upset. I explained to patient that she has severe osteoporosis and she is at relatively high risk of fracture discussed potential complications of fractures. Discussed the need for osteoporosis medications such as Reclast or Prolia. Patient is adamant that she not want them . She will think about it. Mildly low vitamin-D level. Patient is not taking vitamin-D supplementation. They have vitamin-D supplements that takes. They will call me and let me know the dose Plan I spent 26 minutes reviewing patient's chart, evaluating patient, ordering diagnostic workup, counseling patient and documenting in the chart Orders: Orders Complete Blood Count Auto Diff 4 Months M45.0 - Ankylosing spondylitis of multiple sites in spine Comprehensive Met. Panel 4 Months M45.0 - Ankylosing spondylitis of multiple si dede in spine Erythrocyte Sedimentation Rate 4 Months M45.0 - Ankylosing spondylitis of multiple sites in spine C Reactive Protein 4 Months M45.0 - Ankylosing spondylitis of multiple sites in spine Coding Level of Care Code Est Pt Level 4 (82108) Diagnoses Ankylosing spondylitis of multiple sites in spine M45.0 Ankylosing spondylitis location: multiple sites in spine Age-related osteoporosis without current pathological fracture M81.0 Osteoporosis type: age-related Presence of current pathological fracture: without current pathological fracture
[2023-06-29 12:59] VITALS: BP 108/68; PULSE 74; O2SAT 98; BMI 19.8
== END 2023-06-29 13:31 | disposition home or self-care (01) ==
PROVIDERS: PCP Family Medicine; Visit Provider Student in an Organized Health Care Education/Training Program
DX: M45.0 Ankylosing spondylitis of multiple sites in spine (principal); M81.0 Age-related osteoporosis without current pathological fracture
CPT/HCPCS: 99214

== ENCOUNTER → 2023-06-29 12:56 | Outpatient (BNVA) | payer MEDICARE, SELFPAY | PROVIDERS: PCP Family Medicine; Visit Provider Student in an Organized Health Care Education/Training Program | DX: M45.0 Ankylosing spondylitis of multiple sites in spine (principal); M81.0 Age-related osteoporosis without current pathological fracture | CPT/HCPCS: 99212 ==

== ENCOUNTER 2023-07-07 10:49 | Outpatient (AMB) | payer MEDICARE, SELFPAY ==
--- NOTE | 2023-07-07 12:04 | AM.OFFVISNUR ---
Intake Vital Signs 07/07/23 12:05 BP 110/70 Pulse 81 Pulse Source Pulse Oximeter Intake Visit Reasons: Prolia inj Varnish Mixer Required: No Allergies morphine Allergy (Severe, Verified 07/07/23 12:06) Vomiting Nursing Note Patient here for first Prolia injection. Patient denies allergies. She has signed consent for me to administer Prolia injection. I have provided education to patient and symptoms to look for after receiving Prolia. I administered Prolia on right arm. She tolerated injection well. Office Meds Prolia 60 mg/mL subcutaneous syringe Performing Provider: Jeff Jones MD Performing Location: [facility] [place] [facility] Administered by: Dinah Ascencio RN on 07/07/23 12:10 Dose Route Admin Location Dispensed Lot Number Expiration Date [facility] Condenser Setter 60 mg subcut right arm 1 mL [id number] 09/19/25 04521-634-99 [facility] Coding Level of Care Code Procedure Only Assessment & Plan Assessment & Plan Orders: Orders AMB Denosumab Injection Practice Supplied Today M81.0 - Age-related osteoporosis without current pathological fracture Medications: New Prolia (denosumab) 60 mg subcut ONCE 1 mL 0RF NS M81.0 - Age-related osteoporosis without current pathological fracture
[2023-07-07 12:05] VITALS: BP 110/70; PULSE 81
== END 2023-07-07 11:25 | disposition home or self-care (01) ==
PROVIDERS: PCP Family Medicine; Visit Provider Student in an Organized Health Care Education/Training Program
DX: M81.0 Age-related osteoporosis without current pathological fracture (principal)

== ENCOUNTER → 2023-07-07 10:49 | Outpatient (BNVA) | payer MEDICARE, SELFPAY | PROVIDERS: PCP Family Medicine; Visit Provider Student in an Organized Health Care Education/Training Program | DX: M81.0 Age-related osteoporosis without current pathological fracture (principal) | CPT/HCPCS: 96372; J0897 ==

== ENCOUNTER 2023-10-28 08:58 | Outpatient (REF) | payer MEDICARE, SELFPAY ==
[2023-10-28 09:15] LABS: MANUAL DIFF FLAG NO
[2023-10-28 09:46] LABS: Basophils Absolute Auto 0.1 X10*3/uL (0.0-0.2); Basophils Percent Auto 0.9 % (0-2); Eosinophils Absolute Auto 0.2 X10*3/uL (0.0-0.4); Eosinophils Percent Auto 3.2 % (0-4); Hematocrit 37.2 % (37.0-47.0); Hemoglobin 12.2 g/dl (12.0-16.0); Imm Gran Abs Auto 0.02 X10*3/uL (0.00-0.03); Imm Gran Pct Auto 0.3 % (0.0-0.4); Lymphocytes Absolute Auto 3.7 X10*3/uL (1.2-4.9); Lymphocytes Percent Auto 55.7 % (20-40); Mean Corpuscular HGB Conc 32.8 g/dl (31.0-35.0); Mean Corpuscular Hemoglobin 30.1 pg (27.0-33.0); Mean Corpuscular Volume 91.9 fL (80.0-98.0); Monocytes Absolute Auto 0.4 X10*3/uL (0.1-1.2); Monocytes Percent Auto 6.2 % (2-11); Neutrophils Absolute Auto 2.2 x10*3/uL (2.0-8.3); Neutrophils Percent Auto 33.7 % (45-73); Platelet Count 240 X10*3/uL (160-400); Red Blood Count 4.05 X10*6/uL (4.20-5.50); Red Cell Distribution Width 13.4 % (11.0-16.0); White Blood Count 6.6 X10*3/uL (4.8-10.8)
[2023-10-28 10:22] LABS: Alanine Aminotransferase 12 U/L (0-31); Albumin Level 4.4 g/dL (3.5-5.0); Alkaline Phosphatase 50 U/L (39-117); Anion Gap 12 (12-20); Aspartate Amino Transferase 22 U/L (5-31); Bilirubin Total 0.4 mg/dL (0.0-1.0); Blood Urea Nitrogen 16 mg/dL (9-16); C Reactive Protein 0.12 mg/dL (< or = 0.50); Calcium 9.2 mg/dL (8.4-10.2); Carbon Dioxide 30 mmol/L (22-29); Chloride 102 mmol/L (96-108); Estimated Glomerular Filt Rate > 60; Glucose Random 89 mg/dL (60-115); Potassium 4.1 mmol/L (3.3-5.1); Sodium 140 mmol/L (135-145); Total Protein 7.8 g/dL (6.5-8.0)
[2023-10-28 10:33] LABS: Erythrocyte Sedimentation Rate 20 MM/HR (0-20)
== END 2023-10-28 08:59 | disposition home or self-care (01) ==
LOC: HO.LAB 08:58
PROVIDERS: PCP Family Medicine; Visit Provider Student in an Organized Health Care Education/Training Program
DX: M45.0 Ankylosing spondylitis of multiple sites in spine (principal)
CPT/HCPCS: 36415; 80053; 85025; 85652; 86140

== ENCOUNTER 2023-10-29 13:12 | Outpatient (AMB) | payer MEDICARE, SELFPAY ==
--- NOTE | 2023-10-29 13:15 | MHC.OFFVIS ---
Vital Signs 10/29/23 13:19 Height 5 ft 1 in Weight 103 lb 6.349 oz BMI 19.5 BP 124/72 Blood Pressure Location Rt brachial Position Sitting Respiration 16 Pulse 71 Pulse Source Pulse Oximeter Pulse Oximetry (%) 96 Oxygen Delivery Method Room Air Intake Visit Reasons: /CONFIRM Intake Note: Patient presents for . Allergies morphine Allergy (Severe, Verified 10/29/23 13:18) Vomiting Medication List - Last Reconciled 10/29/23 by Jeff Jones MD denosumab (Prolia) 60 mg subcut [id number] golimumab (Simponi ARIA) 2 mg/kg at weeks 0, 4, every 8 weeks thereafter. HPI Comments Details: 68-year-old female with ankylosing spondylitis returns for follow-up. On Simponi infusions. Doing well overall. States that her last Simponi infusion lasted less than 8 weeks.. She received her Prolia injection 06/2023 she had some stomach upset afterwards then it self-resolved. Initial history: This is a 67-year-old female the past medical history of ankylosing spondylitis presents for evaluation. 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 Patient states that started having spinal pain and stiffness more than 30 years ago. She stated that she was on some medications, she does not recall the name for many years. She saw Dr. Enriquez back in October of 2021 and was started on Humira. Per patient and she feels that she has more energy overall patient however continues to have generalized back pain and stiffness throughout the day, stiffness is generally worse in the morning lasting at least 2-3 hours until it improves. She takes ibuprofen about once a month with some relief. Per patient has had intermittent episodes of knee and elbow swelling over the years. There is no history suggestive of uveitis or IBD. Denied ever doing physical therapy. Since September of 2021 which she started having a skin rash in front of her right ear and above her upper lip. She took hbil-rgt-cmxjpqm steroid cream with some relief, she was then evaluated by a quality assurance tech and prescribed mupirocin cream without relief. She continues to have the same rash. Denies known history of psoriasis. [facility] Medical History Osteoporosis Surgical History Hx of plastic surgery Family History Brother Heart attack Mother Heart attack Father No problems noted. Social History Household Members: Spouse Alcohol intake: never Patient Tobacco Use Status: Never used Tobacco Current occupational status: unemployed Review of Systems [employer] Denies back pain Physical Exam Vital Signs: Last Vital Signs Pulse 71 10/29/23 13:19 Resp 16 10/29/23 13:19 BP 124/72 10/29/23 13:19 Pulse Ox 96 10/29/23 13:19 Oxygen Delivery Method Room Air 10/29/23 13:19 BMI result Body Mass Index 19.5 Const General: cooperative, healthy appearing and comfortable Nutritional Appearance: average body habitus and well nourished Orientation/consciousness: patient oriented x3 Limitations: no limitations HEENT Head: Yes normocephalic and Yes atraumatic Resp Effort & Inspection: normal respiratory effort and able to speak in complete sentences Auscultation: clear to auscultation bilaterally Cardio Rate: regular rate Rhythm: regular rhythm GI Inspection: No distended Palpation (GI): Soft to palpation and nontender Back/Spine/Pelvis Other: Efraín test 10-11 cm Significantly limited lateral flexion test bilaterally, almost no flexion Negative RIVAS test bilaterally Negative straight leg raise test bilaterally Barely any neck rotation Neuro General: patient oriented x3 Extrem Other: No active peripheral synovitis Assessment & Plan Assessment & Plan (1) Ankylosing spondylitis: Comment: diagnosed in the Humira started around 10/2021 partially effective DC 08/12 Simponi infusions 08/12 quite effective Code(s): M45.9 - Ankylosing spondylitis of unspecified sites in spine Category: Medical Qualifiers: Ankylosing spondylitis location: multiple sites in spine Qualified Code(s): M45.0 - Ankylosing spondylitis of multiple sites in spine Plan: This is a 68-year-old female with a past medical history of ankylosing spondylitis who presents for follow-up. Doing very well on Simponi infusions. Patient stated that her last infusion lasted 1 week less than the usual, I think it is because patient received the infusion about 1 week late. Advised patient to make sure that she gets her infusion every 8 weeks, 56 days in between infusions Continue Simponi infusions every 8 weeks months 2 milligram/kilogram every 8 weeks. Continue exercises Labs before next visit in 4 months (2) Osteoporosis: Comment: DEXA 01/2020 L-spine region was excluded due to artifact Right femora T-score -2.7 Total hip score T-score-1.7 03/25 radius T-score -3.2 DEXA 10/2022 Left femur neck T-score-2.8 Left femur total -2.0 AP spine L3-L4 excluding L1 and L2 T-score -5.1 Alendronate 02/2023 self DC few weeks after Prolia 06/2023 Code(s): M81.0 - Age-related osteoporosis without current pathological fracture Category: Medical Qualifiers: Osteoporosis type: age-related Presence of current pathological fracture: without current pathological fracture Qualified Code(s): M81.0 - Age-related osteoporosis without current pathological fracture Plan: Discussed nature of osteoporosis and its associated risks. Patient took alendronate few weeks and discontinued it due to GI upset. I explained to patient that she has severe osteoporosis and she is at relatively high risk of fracture discussed potential complications of fractures. Discussed the need for osteoporosis medications such as Reclast or Prolia. After last visit patient agreed to start Prolia, she received her 1st Prolia 06/2023, injection was uneventful. Next Prolia injection 12/2023 Mildly low vitamin-D level. Patient does not consistent with her vitamin-D supplementation. (3) High risk medication use: Code(s): Z79.899 - Other terminal worker (current) drug therapy Category: Medical Plan: Side effects of Simponi were discussed with the patient in detail including increased risk of infection, demyelinating disease, reactivation of latent TB, possible increased risk of solid and skin tumors. Patient fully aware. Advised patient to seek medical care [facility] if patient has an infection and advised patient to stop the medication until the infection is resolved. Plan I spent 26 minutes reviewing patient's chart, evaluating patient, ordering diagnostic workup, counseling patient and documenting in the chart Orders: Orders Complete Blood Count Auto Diff 4 Months M45.0 - Ankylosing spondylitis of multiple sites in spine Comprehensive Met. Panel 4 Months M45.0 - Ankylosing spondylitis of multiple sites in spine Erythrocyte Sedimentation Rate 4 Months M45.0 - Ankylosing spondylitis of multiple sites in spine C Reactive Protein 4 Months M45.0 - Ankylosing spondylitis of multiple sites in spine Coding Level of Care Code Est Pt Level 4 (07500) Diagnoses Ankylosing spondylitis of multiple sites in spine M45.0 Ankylosing spondylitis location: multiple sites in spine Age-related osteoporosis without current pathological fracture M81.0 Osteoporosis type: age-related Presence of current pathological fracture: without current pathological fracture High risk medication use Z79.899
[2023-10-29 13:19] VITALS: BP 124/72; PULSE 71; RESP 16; O2SAT 96; BMI 19.5
== END 2023-10-29 13:39 | disposition home or self-care (01) ==
PROVIDERS: PCP Family Medicine; Referring Provider Family Medicine; Visit Provider Student in an Organized Health Care Education/Training Program
DX: M45.0 Ankylosing spondylitis of multiple sites in spine (principal); M81.0 Age-related osteoporosis without current pathological fracture; Z79.899 Other long term (current) drug therapy
CPT/HCPCS: 99214

== ENCOUNTER → 2023-10-29 13:14 | Outpatient (BNVA) | payer MEDICARE, SELFPAY | PROVIDERS: PCP Family Medicine; Visit Provider Student in an Organized Health Care Education/Training Program | DX: M45.0 Ankylosing spondylitis of multiple sites in spine (principal); M81.0 Age-related osteoporosis without current pathological fracture; Z79.899 Other long term (current) drug therapy | CPT/HCPCS: 99212 ==

== ENCOUNTER 2024-02-04 10:12 | Outpatient (REF) | payer MEDICARE, SELFPAY ==
[2024-02-04 10:42] LABS: MANUAL DIFF FLAG NO
[2024-02-04 11:16] LABS: Basophils Absolute Auto 0.1 X10*3/uL (0.0-0.2); Basophils Percent Auto 0.7 % (0-2); Eosinophils Absolute Auto 0.2 X10*3/uL (0.0-0.4); Eosinophils Percent Auto 2.3 % (0-4); Hematocrit 34.4 % (37.0-47.0); Imm Gran Abs Auto 0.02 X10*3/uL (0.00-0.03); Imm Gran Pct Auto 0.3 % (0.0-0.4); Lymphocytes Absolute Auto 3.4 X10*3/uL (1.2-4.9); Lymphocytes Percent Auto 44.9 % (20-40); Mean Corpuscular Hemoglobin 29.7 pg (27.0-33.0); Mean Platelet Volume 9.8 fL (9.4-12.3); Monocytes Absolute Auto 0.6 X10*3/uL (0.1-1.2); Monocytes Percent Auto 7.3 % (2-11); Neutrophils Absolute Auto 3.4 x10*3/uL (2.0-8.3); Neutrophils Percent Auto 44.5 % (45-73); Platelet Count 245 X10*3/uL (160-400); Red Cell Distribution Width 13.4 % (11.0-16.0); White Blood Count 7.5 X10*3/uL (4.8-10.8)
[2024-02-04 11:54] LABS: Erythrocyte Sedimentation Rate 22 MM/HR (0-20)
[2024-02-04 11:57] LABS: Alanine Aminotransferase 10 U/L (0-31); Albumin Level 3.7 g/dL (3.5-5.0); Alkaline Phosphatase 46 U/L (39-117); Anion Gap 8 (12-20); Aspartate Amino Transferase 20 U/L (5-31); Bilirubin Total 0.4 mg/dL (0.0-1.0); Blood Urea Nitrogen 12 mg/dL (9-16); C Reactive Protein 0.21 mg/dL (< or = 0.50); Calcium 8.7 mg/dL (8.4-10.2); Carbon Dioxide 32 mmol/L (22-29); Chloride 103 mmol/L (96-108); Estimated Glomerular Filt Rate > 60; Glucose Random 111 mg/dL (60-115); Potassium 3.6 mmol/L (3.3-5.1); Sodium 139 mmol/L (135-145); Total Protein 6.7 g/dL (6.5-8.0)
[2024-02-10 16:18] LABS: Vitamin D 25-OH, D2 <4 ng/mL; Vitamin D 25-OH, D3 30 ng/mL; Vitamin D 25-OH, Total 30 ng/mL (30-100)
== END 2024-02-04 10:13 | disposition home or self-care (01) ==
LOC: HO.LAB 10:12
PROVIDERS: Visit Provider Student in an Organized Health Care Education/Training Program
DX: M45.0 Ankylosing spondylitis of multiple sites in spine (principal); E55.9 Vitamin D deficiency, unspecified
CPT/HCPCS: 36415; 80053; 82306; 85025; 85652; 86140

== ENCOUNTER 2024-02-10 12:48 | Outpatient (AMB) | payer MEDICARE, SELFPAY ==
--- NOTE | 2024-02-10 13:00 | AM.OFFVISNUR ---
Intake Visit Reasons: osteoporosis/prolia Allergies morphine Allergy (Severe, Verified 10/29/23 13:18) Vomiting Office Meds Prolia 60 mg/mL subcutaneous syringe Performing Provider: Jeff Jones MD Performing Location: [facility] [place] Rheumatology Administered by: Josseline Sifuentes RN on 02/10/24 13:00 Dose Route Admin Location Dispensed Lot Number Expiration Date [employer] Manager 60 mg subcut right upper extremity 1 mL [id number] 05/20/26 31463-107-19 [facility] Comments: Consent form signed by patient. Pt tolerated injection well. Pt denies any adverse reactions with previous injections Assessment & Plan Assessment & Plan Orders: Orders AMB Denosumab Injection Practice Supplied Today M81.0 - Age-related osteoporosis without current pathological fracture Medications: New Prolia (denosumab) 60 mg subcut ONCE 1 mL 0RF NS M81.0 - Age-related osteoporosis without current pathological fracture
== END 2024-02-10 13:02 | disposition home or self-care (01) ==
PROVIDERS: PCP Family Medicine; Visit Provider Student in an Organized Health Care Education/Training Program
DX: M81.0 Age-related osteoporosis without current pathological fracture (principal)

== ENCOUNTER → 2024-02-10 12:48 | Outpatient (BNVA) | payer MEDICARE, SELFPAY | PROVIDERS: PCP Family Medicine; Visit Provider Student in an Organized Health Care Education/Training Program | DX: M81.0 Age-related osteoporosis without current pathological fracture (principal); Z79.620 Long term (current) use of immunosuppressive biologic | CPT/HCPCS: 96372; J0897 ==

== ENCOUNTER 2024-02-29 12:54 | Outpatient (AMB) | payer MEDICARE, SELFPAY ==
--- NOTE | 2024-02-29 13:00 | MHC.OFFVIS ---
Vital Signs 02/29/24 13:02 Height 5 ft 1 in Weight 101 lb BMI 19.1 BP 118/70 Blood Pressure Location Lt brachial Position Sitting Pulse 78 Pulse Source Pulse Oximeter Pulse Oximetry (%) 99 Oxygen Delivery Method Room Air Intake Visit Reasons: /cm Intake Note: Patient last seen by doctor Jeff Jones on 10/29/23. Presents today for follow up and test results. Patient complains of dmry, tired eye and she is losing hair after taking Symponi, wondering if it is a side effect of taking it. Allergies morphine Allergy (Severe, Verified 02/29/24 13:03) Vomiting Medication List - Last Reconciled 02/29/24 by Jeff Jones MD denosumab (Prolia) 60 mg subcut [id number] golimumab (Simponi ARIA) 2 mg/kg at weeks 0, 4, every 8 weeks thereafter. HPI Comments Details: 69-year-old female with ankylosing spondylitis returns for follow-up. On Simponi infusions. Doing well overall. She states that she is doing reasonably well overall. No major changes. She has noticed some fine hair loss recently. Initial history: This is a 67-year-old female the past medical history of ankylosing spondylitis presents for evaluation. 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 Patient states that started having spinal pain and stiffness more than 30 years ago. She stated that she was on some medications, she does not recall the name for many years. She saw Dr. Enriquez back in October of 2021 and was started on Humira. Per patient and she feels that she has more energy overall patient however continues to have generalized back pain and stiffness throughout the day, stiffness is generally worse in the morning lasting at least 2-3 hours until it improves. She takes ibuprofen about once a month with some relief. Per patient has had intermittent episodes of knee and elbow swelling over the years. There is no history suggestive of uveitis or IBD. Denied ever doing physical therapy. Since September of 2021 which she started having a skin rash in front of her right ear and above her upper lip. She took vgtq-ezp-ckwsjzs steroid cream with some relief, she was then evaluated by a wedding consultant and prescribed mupirocin cream without relief. She continues to have the same rash. Denies known history of psoriasis. [facility] Medical History Osteoporosis Surgical History Hx of plastic surgery Family History Brother Heart attack Mother Heart attack Father No problems noted. Social History Household Members: Spouse Alcohol intake: never Patient Tobacco Use Status: Never used Tobacco Current occupational status: unemployed Review of Systems [facility] [place] Denies back pain Skin/Breast Reports alopecia Physical Exam Vital Signs: Last Vital Signs Pulse 78 02/29/24 13:02 BP 118/70 02/29/24 13:02 Pulse Ox 99 02/29/24 13:02 Oxygen Delivery Method Room Air 02/29/24 13:02 BMI result Body Mass Index 19.1 Const General: cooperative, healthy appearing and comfortable Nutritional Appearance: average body habitus and well nourished Orientation/consciousness: patient oriented x3 Limitations: no limitations HEENT Head: Yes normocephalic and Yes atraumatic Resp Effort & Inspection: normal respiratory effort and able to speak in complete sentences Auscultation: clear to auscultation bilaterally Cardio Rate: regular rate Rhythm: regular rhythm GI Inspection: No distended Palpation (GI): Soft to palpation and nontender Back/Spine/Pelvis Other: Efraín test 10-11 cm Significantly limited lateral flexion test bilaterally, almost no flexion Negative RIVAS test bilaterally Negative straight leg raise test bilaterally Barely any neck rotation Neuro General: patient oriented x3 Extrem Other: No active peripheral synovitis Assessment & Plan Assessment & Plan (1) Ankylosing spondylitis: Comment: diagnosed in the Humira started around 10/2021 partially effective DC 08/12 Simponi infusions 08/12 quite effective Code(s): M45.9 - Ankylosing spondylitis of unspecified sites in spine Category: Medical Qualifiers: Ankylosing spondylitis location: multiple sites in spine Qualified Code(s): M45.0 - Ankylosing spondylitis of multiple sites in spine Plan: This is a 69-year-old female with a past medical history of ankylosing spondylitis who presents for follow-up. Doing very well on Simponi infusions. Continue Simponi infusions every 8 weeks months 2 milligram/kilogram every 8 weeks. Continue exercises Labs before next visit in 5 months (2) Osteoporosis: Comment: DEXA 01/2020 L-spine region was excluded due to artifact Right femora T-score -2.7 Total hip score T-score-1.7 03/25 radius T-score -3.2 DEXA 10/2022 Left femur neck T-score-2.8 Left femur total -2.0 AP spine L3-L4 excluding L1 and L2 T-score -5.1 Alendronate 02/2023 self DC few weeks after Prolia 06/2023 Code(s): M81.0 - Age-related osteoporosis without current pathological fracture Category: Medical Qualifiers: Osteoporosis type: age-related Presence of current pathological fracture: without current pathological fracture Qualified Code(s): M81.0 - Age-related osteoporosis without current pathological fracture Plan: Received 2 doses of Prolia so far, uneventful. Continue with Prolia injections Q.6 months Vitamin-D level is still not at target, patient does not like to take vitamin-D tablets, she has been consuming more she has. Again reiterated the importance of vitamin-D supplementation for bone health (3) High risk medication use: Code(s): Z79.899 - Other termite inspector (current) drug therapy Category: Medical Plan: Side effects of Simponi were discussed with the patient in detail including increased risk of infection, demyelinating disease, reactivation of latent TB, possible increased risk of solid and skin tumors. Patient fully aware. Advised patient to seek medical care [facility] if patient has an infection and advised patient to stop the medication until the infection is resolved. Plan I spent 26 minutes reviewing patient's chart, evaluating patient, ordering diagnostic workup, counseling patient and documenting in the chart Orders: Orders Complete Blood Count Auto Diff 5 Months M45.0 - Ankylosing spondylitis of multiple sites in spine Comprehensive Met. Panel 5 Months M45.0 - Ankylosing spondylitis of multiple sites in spine C Reactive Protein 5 Months M45.0 - Ankylosing spondylitis of multiple sites in spine Erythrocyte Sedimentation Rate 5 Months M45.0 - Ankylosing spondylitis of multiple sites in spine Vitamin D 25-OH Total 5 Months E55.9 - Vitamin D deficiency, unspecified Coding Level of Care Code Est Pt Level 4 (29690) Complex EM visit Add On G2211 Diagnoses Ankylosing spondylitis of multiple sites in spine M45.0 Ankylosing spondylitis location: multiple sites in spine Age-related osteoporosis without current pathological fracture M81.0 Osteoporosis type: age-related Presence of current pathological fracture: without current pathological fracture High risk medication use Z79.899
[2024-02-29 13:02] VITALS: BP 118/70; PULSE 78; O2SAT 99; BMI 19.1
== END 2024-02-29 13:26 | disposition home or self-care (01) ==
PROVIDERS: PCP Family Medicine; Visit Provider Student in an Organized Health Care Education/Training Program
DX: M45.0 Ankylosing spondylitis of multiple sites in spine (principal); M81.0 Age-related osteoporosis without current pathological fracture; Z79.899 Other long term (current) drug therapy
CPT/HCPCS: 99214; G2211

== ENCOUNTER → 2024-02-29 12:54 | Outpatient (BNVA) | payer MEDICARE, SELFPAY | PROVIDERS: PCP Family Medicine; Visit Provider Student in an Organized Health Care Education/Training Program | DX: M45.0 Ankylosing spondylitis of multiple sites in spine (principal); M81.0 Age-related osteoporosis without current pathological fracture; Z79.899 Other long term (current) drug therapy | CPT/HCPCS: 99212 ==

== ENCOUNTER 2024-08-10 12:23 | Outpatient (AMB) | payer MEDICARE, SELFPAY ==
--- NOTE | 2024-08-10 12:29 | A.OFFVIS_ITS ---
Vital Signs 08/10/24 12:34 Height 5 ft 1 in Weight 108 lb 0.424 oz BMI 20.4 BP 140/80 H Blood Pressure Location Rt brachial Position Sitting Pulse 69 Pulse Source Pulse Oximeter Pulse Oximetry (%) 98 Oxygen Delivery Method Room Air Intake Visit Reasons: osteoporosis follow up and prolia inj Intake Note: Patient presents for Osteoporosis follow up and Prolia injection. Allergies morphine Allergy (Severe, Verified 08/10/24 12:34) Vomiting Medication List - Last Reconciled 08/10/24 by Janeth Goode MD denosumab (Prolia) 60 mg subcut [id number] golimumab (Simponi ARIA) 2 mg/kg at weeks 0, 4, every 8 weeks thereafter. HPI Comments Details: Patient is a 69-year-old female with osteoporosis and ankylosing spondylitis here today for follow up Interval History: Patient last seen 02/29/[address] Jones. At that time she was following for her ankylosing spondylitis. She was on Simponi infusions and doing well overall. Continues to do well Unable to do weight bearing exercises with her back as her Ank spon limits her mobility Not taking vitamin D Rheumatologic History: Initial history: This is a 67-year-old female the past medical history of ankylosing spondylitis presents for evaluation. 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 Patient states that started having spinal pain and stiffness more than 30 years ago. She stated that she was on some medications, she does not recall the name for many years. She saw Dr. Enriquez back in October of 2021 and was started on Humira. Per patient and she feels that she has more energy overall patient however continues to have generalized back pain and stiffness throughout the day, stiffness is generally worse in the morning lasting at least 2-3 hours until it improves. She takes ibuprofen about once a month with some relief. Per patient has had intermittent episodes of knee and elbow swelling over the years. There is no history suggestive of uveitis or IBD. Denied ever doing physical therapy. Since September of 2021 which she started having a skin rash in front of her right ear and above her upper lip. She took [id number] steroid cream with some relief, she was then evaluated by a temper mill operator and prescribed mupirocin cream without relief. She continues to have the same rash. Denies known history of psoriasis. Current Rheumatology Medication(s): Simponi Aria infusions 2mg/kg every 4 weeks Prolia 60mg SC PFSH Medical History Osteoporosis Surgical History Hx of plastic surgery Family History Brother Heart attack Mother Heart attack Father No problems noted. Social History Household Members: Spouse Alcohol intake: never Patient Tobacco Use Status: Never used Tobacco Current occupational status: unemployed Review of Systems Const Details: Review of Systems Constitutional: Denies fever, chills, weight loss ENT: Denies vision changes, eye pain or eye redness, dental caries, dry mouth GI: Denies nausea, vomiting, diarrhea, abdominal pain, change in BM Pulm: Denies SOB, TREVINO, hemoptysis, wheezing Cards: Denies chest pain, palpitations Skin: Denies Raynaud's, rash, nail changes, photosensitivity, HEALTH CARE CONSULTANT: Denies headaches, weakness, paresthesias, recurrent falls MSK: as per HPI All other systems reviewed and are unremarkable except noted above Physical Exam Vital Signs: Last Vital Signs Pulse 69 08/10/24 12:34 BP 140/80 H 08/10/24 12:34 Pulse Ox 98 08/10/24 12:34 Oxygen Delivery Method Room Air 08/10/24 12:34 BMI result Body Mass Index 20.4 Vital signs reviewed Physical Examination CONSTITUITIONAL Patient alert and cooperative. Well appearing and in no apparent painful distress HEENT Conjunctiva and sclera clear. ?Pupils equal round and reactive to light. ?No lymphadenopathy. ? CHEST/RESPIRATORY SYSTEM Normal respiratory effort and able to speak in complete sentences. ?Clear to auscultation bilaterally. ?No crackles, rales, rhonchi, wheezes heard. CARDIAC SYSTEM Regular rate and rhythm. ?S1 and S2 heard no murmurs. ?Radial pulses intact bilaterally MSK Hands: ?Able to make a fist. No synovitis noted to the MCPs, PIPs or DIPs. ?No tenderness to palpation of these joints. No deformities noted. Herbeden's nodes noted Wrists: ?Full range of motion at the wrists without pain. ?No tenderness to palpation or synovitis noted to the wrists. Elbows: Full range of motion without pain. No tenderness, weakness, swelling, increased warmth or erythema. Shoulders: Full range of active range of motion without pain. No tenderness, weakness, swelling, increased warmth or erythema. Knees: ?Full range of motion. ?No tenderness, swelling, increased warmth or erythema.?No effusion or crepitations Ankles: Full range of motion. ?No tenderness, swelling, increased warmth or erythema.? Feet: ?Negative squeeze test. ?No tenderness to palpation or swelling of the MTPs. Tender points:?No tenderness to palpation of the bilateral trapezius, supraspinatus, greater trochanters, anterior costochondral junctions, bilateral gluteal areas, bilateral suboccipital muscle insertions SKIN Skin intact without rashes. Results Reviewed Results Reviewed: Laboratory Tests 02/04/24 07/21/24 10:40 11:07 WBC 4.7 L RBC 3.72 L Hgb 11.1 L Hct 34.7 L Plt Count 207 ESR 22 H Sodium 139 Potassium 3.6 Chloride 103 Carbon Dioxide 32 H BUN 12 Creatinine 0.75 AST 20 ALT 10 Alkaline Phosphatase 46 C-Reactive Protein 0.21 25-OH Vitamin D Total 30 Laboratory Tests 05/20/22 10:15 HLA-B27 Negative Infectious serologies 07/21/24 11:07 Hep Bs Antigen Negative Hep Bs Antibody REACTIVE Hep B Core Total Ab Reactive Hepatitis C Ab (EIA) Nonreactive TB Test (T-Spot) Com Negative DEXA 10/2022 FINDINGS: LEFT FEMUR, NECK: BMD 0.647 g/cm2, Z-score -0.8, T-score -2.8, osteoporosis. LEFT FEMUR, TOTAL: BMD 0.755 g/cm2, Z-score -0.2, T-score -2.0, osteopenia. AP SPINE L3-L4 (excluding L1 and L2): The data of L1-L4 has been changed to exclude the L1 and L2 vertebral bodies, because significant degenerative change at these levels may cause overestimation of lumbar spine density. BMD 0.594 g/cm2, Z-score -2.8, T-score -5.1, osteoporosis. Assessment & Plan Assessment & Plan (1) Ankylosing spondylitis: Comment: diagnosed in the Humira started around 10/2021 partially effective DC 08/12 Simponi infusions 08/12 quite effective Code(s): M45.9 - Ankylosing spondylitis of unspecified sites in spine Category: Medical Qualifiers: Ankylosing spondylitis location: multiple sites in spine Qualified Code(s): M45.0 - Ankylosing spondylitis of multiple sites in spine Plan: #Ankylosing spondylitis Patient is a 69-year-old female with ankylosing spondylitis here today for follow up. Currently on Simponi Aria infusions and in remission. Plan - Simponi aria infusions 2mg/kg every 4 weeks - RTC 6 months - Labs before visit: CBC, CMP, ESR, CRP (2) Osteoporosis: Comment: DEXA 01/2020 L-spine region was excluded due to artifact Right femora T-score -2.7 Total hip score T-score-1.7 03/25 radius T-score -3.2 DEXA 10/2022 Left femur neck T-score-2.8 Left femur total -2.0 AP spine L3-L4 excluding L1 and L2 T-score -5.1 Alendronate 02/2023 self DC few weeks after Prolia 06/2023 Code(s): M81.0 - Age-related osteoporosis without current pathological fracture Category: Medical Qualifiers: Osteoporosis type: age-related Presence of current pathological fracture: without current pathological fracture Qualified Code(s): M81.0 - Age- related osteoporosis without current pathological fracture Plan: #Osteoporosis Patient with severe osteoporosis of the spine. Currently on Prolia injections every 6 months. Vitamin-D is okay. We will repeat bone density 10/2024 Plan - DEXA 10/2024 - Vit Supplementation - Prolia 60mg SC every 6 months (3) Encounter for monitoring denosumab therapy: Code(s): Z51.81 - Encounter for therapeutic drug level monitoring; Z79.620 - buttermaker continuous churn (current) use of immunosuppressive biologic Plan: #Long-term use of Denosumab Discussed with patient the risks and benefits of denosumab (Prolia) for the management of their osteoporosis Benefits include improved bone density, decreased fracture risk Risks include rapid bone loss if denosumab stopped, osteonecrosis of the jaw especially in patients with poor oral hygiene/diabetes/use of glucocorticoids/age greater than 65 years, atypical femoral fractures, injection site reactions. Mild increased risk of infections due to RANKL on T helper cells, increased risk of hypocalcemia especially in CKD patients Keep vitamin-D at least 35 ng/mL Advised to delay non emergent dental procedures to toward the end of the 6 month cycle and if they plan to stop denosumab would need to continue antiresorptive to maintain the effects of denosumabe (4) Encounter for monitoring golimumab therapy: Code(s): Z51.81 - Encounter for therapeutic drug level monitoring; Z79.620 - buttermaker continuous churn (current) use of immunosuppressive biologic Plan: #Long-term Use of TNF Inhibitors: Reji Ibarra Discussed with the patient the benefits and risks of TNF inhibitors for the management of the rheumatic condition Benefits include reduce pain, maintenance of remission and reduction of flares as well as ?progression of the disease Risks include injection sites/infusion reactions, serious infections (such as bacterial infections, opportunistic infections), malignancy, delaminating syndromes, autoimmune phenomena, CHF exacerbations, palmar plantar psoriasis and cytopenias Recommended rotating injection sites, and holding medication during and for up to 1 week after resolution of a febrile illness or open skin wound Plan I spent 30 minutes reviewing the record and labs, taking a history, examining the patient, discussing the treatment plan, ordering diagnostic work up and documenting in the medical record Orders: Orders Complete Blood Count Auto Diff 6 Months E55.9 - Vitamin D deficiency, unspecified, M45.0 - Ankylosing spondylitis of multiple sites in spine Comprehensive Met. Panel 6 Months E55.9 - Vitamin D deficiency, unspecified, M45.0 - Ankylosing spondylitis of multiple sites in spine C Reactive Protein 6 Months E55.9 - Vitamin D deficiency, unspecified, M45.0 - Ankylosing spondylitis of multiple sites in spine Erythrocyte Sedimentation Rate 6 Months E55.9 - Vitamin D deficiency, unspecified, M45.0 - Ankylosing spondylitis of multiple sites in spine XR DEXA axial skeleton 3 Months M81.0 - Age-related osteoporosis without current pathological fracture Vitamin D 25-OH (D2 and D3) 6 Months E55.9 - Vitamin D deficiency, unspecified, M45.0 - Ankylosing spondylitis of multiple sites in spine Coding Level of Care Code Est Pt Level 4 (23998) Complex EM visit Add On G2211 Diagnoses Ankylosing spondylitis of multiple sites in spine M45.0 Ankylosing spondylitis location: multiple sites in spine Age-related osteoporosis without current pathological fracture M81.0 Osteoporosis type: age-related Presence of current pathological fracture: without current pathological fracture Encounter for monitoring denosumab therapy Z51.81; Z79.620 Encounter for monitoring golimumab therapy Z51.81; Z79.620
[2024-08-10 12:34] VITALS: BP 140/80; PULSE 69; O2SAT 98; BMI 20.4
--- NOTE | 2024-08-10 12:59 | AM.OFFVISNUR ---
Vital Signs 08/10/24 12:34 Height 5 ft 1 in Weight 108 lb 0.424 oz BMI 20.4 BP 140/80 H Blood Pressure Location Rt brachial Position Sitting Pulse 69 Pulse Source Pulse Oximeter Pulse Oximetry (%) 98 Oxygen Delivery Method Room Air Intake Visit Reasons: osteoporosis follow up and prolia inj Allergies morphine Allergy (Severe, Verified 08/10/24 12:34) Vomiting Medication List - Last Reconciled 08/10/24 by Janeth Goode MD denosumab (Prolia) 60 mg subcut [id number] golimumab (Simponi ARIA) 2 mg/kg at weeks 0, 4, every 8 weeks thereafter. Nursing Note Administering injection- Prolia Mary Michael 55? presents today for? Prolia (Denosumab) 60 mg/mL injection for the treatment of osteoporosis. The patient has not had any recent fever or illness. The injection site to be used is without erythema, edema, and is clean, dry and intact. Prolia 60mg/mL [facility] [id number] Lot # [id number]? Expiration 10/20/2026? given in the Left posterior forearm . The patient tolerated the procedure well.? We discussed follow-up? precautions including but not limited to injection site soreness, redness, itching or swelling. The patient can call the office for consideration of treatment recommendations e.g., medication to reduce pain (e.g., Tylenol) or itching (e.g., Benadryl) if needed. Skin and mucosal symptoms such as generalized hives, itching, or flushing; swelling of lips, face, throat, or eyes. Respiratory symptoms such as nasal congestion, change in voice, sensation of throat closing, stridor, shortness of breath, wheeze, or cough. Gastrointestinal symptoms such as nausea, vomiting, diarrhea, cramping abdominal pain. Cardiovascular symptoms such as collapse, dizziness, tachycardia, hypotension are considered medical emergencies and the patient verbalizes that urgent medical attention (call 911) should be sought. The patient was observed for injection site reaction. No injection site reactions noted. The patient was discharged from the practice. Assessment & Plan Assessment & Plan (1) Ankylosing spondylitis: Comment: diagnosed in the Humira started around 10/2021 partially effective DC 08/12 Simponi infusions 08/12 quite effective Code(s): M45.9 - Ankylosing spondylitis of unspecified sites in spine Category: Medical Qualifiers: Ankylosing spondylitis location: multiple sites in spine Qualified Code(s): M45.0 - Ankylosing spondylitis of multiple sites in spine (2) Osteoporosis: Comment: DEXA 01/2020 L-spine region was excluded due to artifact Right femora T-score -2.7 Total hip score T-score-1.7 / radius T-score -3.2 DEXA 10/2022 Left femur neck T-score-2.8 Left femur total -2.0 AP spine L3-L4 excluding L1 and L2 T-score -5.1 Alendronate 02/2023 self DC few weeks after Prolia 06/2023 Code(s): M81.0 - Age-related osteoporosis without current pathological fracture Category: Medical Qualifiers: Osteoporosis type: age-related Presence of current pathological fracture: without current pathological fracture Qualified Code(s): M81.0 - Age-related osteoporosis without current pathological fracture Orders: Orders Complete Blood Count Auto Diff 6 Months E55.9 - Vitamin D deficiency, unspecified, M45.0 - Ankylosing spondylitis of multiple sites in spine Comprehensive Met. Panel 6 Months E55.9 - Vitamin D deficiency, unspecified, M45.0 - Ankylosing spondylitis of multiple sites in spine C Reactive Protein 6 Months E55.9 - Vitamin D deficiency, unspecified, M45.0 - Ankylosing spondylitis of multiple sites in spine Erythrocyte Sedimentation Rate 6 Months E55.9 - Vitamin D deficiency, unspecified, M45.0 - Ankylosing spondylitis of multiple sites in spine Vitamin D 25-OH (D2 and D3) 6 Months E55.9 - Vitamin D deficiency, unspecified, M45.0 - Ankylosing spondylitis of multiple sites in spine Coding Diagnoses Ankylosing spondylitis of multiple sites in spine M45.0 Ankylosing spondylitis location: multiple sites in spine Age-related osteoporosis without current pathological fracture M81.0 Osteoporosis type: age-related Presence of current pathological fracture: without current pathological fracture
--- OUTSIDE RECORDS SUMMARY | 2024-08-10 13:14 | XMS_ITS | Data Portability ---
Author Organization [facility], [facility] Address [address] [place] [address] Care Team Providers Care Hand Stapler Name Role Phone MICHELA DESOUZA [facility] Doula CHE COBURN Primary Care Provider Assessment Encounter Date Assessment Date Assessment LastModified by Organization Details LastModified Time 04/16/2021 04/16/2021 [email or web address] deandra [email or web address] Not available 0 04/16/2021 11:20:41 05/07/2023 05/07/2023 We completed your Medicare Wellness exam today. This was an opportunity to assess your overall well being including your ability to care for yourself, your mobility, memory, mental health, as well as your safety. With advancing age, it is important to assign someone in your life as your Health Care Proxy (HCP). This person should know what is important to you and what your wishes are for medical procedures if you cannot communicate your wishes yourself (severe illness, unconsciousness) . We discussed having a completed Health Care Proxy form today. In addition, today we started a conversation about your End of Life wishes. These conversations will continue over the years. Please consider reading the book, Being Mortal by Raheem Patel to help frame future conversations. We discussed the purpose of a MOLST form (Medical Orders for Life Sustaining Treatment) and completed this form if appropriate per your wishes. Vision and Hearing are senses that are critically important as we age. When impaired, they can contribute to memory loss, falls, and make it harder to drive, talk to family and friends, and engage in the world. Please get your vision checked yearly and your hearing checked when you start to notice hearing loss. We discussed approaches to lowering your risk of heart disease and stroke . Your blood pressure is at goal. Your cholesterol is higher than goal, work on eating more fruits and vegetables and avoiding saturated fats. We discussed cancer screening you may need as well as vaccines to prevent infections. Colon Cancer : Your risk of colon cancer is average. Due for colorectal screenin. If you are not planning to have a colonoscopy please screen with stool cards yearly. Breast Cancer : Breast Cancer Screening (mammography). Next mammogram due: 2023. You decline Cervical Cancer Screening (pap test). Next pap due: not needed. Influenza Vaccine : Flu shot yearly. Tetanus Vaccine : Every 10 years. Due: 2023. The following vaccines are available from your pharmacy: Pneumonia Vaccine : PCV20: once after age 65. Shingles Vaccine : 2 shots after age 50. Covid Vaccine : Make sure you have received the most up to date covid vaccine. Your personal health goal for the year is: Not available 05/07/2023 20:30:55 Plan of Treatment Reminders Order Date Submit Date Provider Last Modified By Organization Details Last Modified Time Details Appointments None recorde d. Lab C-react annika protein , quantit ative, serum or plasma 2021 [facility], [address] [place] [address], [id number], 16:36:34 erythro cyte sedimen tation rate by westerg rossy method 2021 [facility], [address] [place] [address], [address], 16:18:24 CMP, serum or plasma 2021 [facility], [address] [place] [address], [address], 16:36:33 CBC 2021 [facility], [address] [place] [address], [address], 15:21:06 tb (Edward kenyon), ifn-jw nd colin, blood 2021 022 [facility], [address] [place] [address], [address], 13:21:56 TSH, serum or plasma 2021 022 [facility], [address] [place] [address], [address], 12:47:27 T4, free, serum 2021 022 [facility], [address] [place] [address], [address], 12:47:26 vitamin B12, serum 2021 022 [facility], [address] [place] [address], [address], 13:39:27 folate, serum 2021 022 [facility], [address] [place] [address], [address], 13:39:28 BMP, serum or plasma [facility] [address] [place] [address], [address], 15:27:54 Referral rheumat ologist referra l 2022 023 [facility], [address] [place] [address] Juancarlos Hernandez, [place], [address], 3 09:51:27 Procedures None recorde d. Surgeries None recorde d. Imaging US, duplex, carotid artery 2023 024 [facility] (Imaging), [address], [place], [place], [address], 4 12:49:00 bone density 2022 023 [place], [address], 14:45:12 danie PARRISH tomosyn thesis, jak srivastava 2021 Not available 3 11:52:04 Medication Orders Humira( CF) Pen 40 mg/0.4 mL subcuta neous kit 2021 [facility] [address] ([facility]), [address] [place], [place], [id number], 4 09:51:51 triamci nolone acetoni de 0.1 % topical ointmen t 2021 [facility] [place], [address], 09:52:07 Patient TargetsNo targets recorded. Patient Instructions Encounter Date Encounter Id Patient Instructions Last Modified By Organization Details Last Modified Time 04/16/2021 [id number] advance directives: care instructions Not available 04/16/2021 14:11:22 preventing falls : care instructions Not available 04/16/2021 14:11:22 hearing loss: ca re instructions Not available 04/16/2021 14:11:22 well visit, over 65: care instructions Not available 04/16/2021 14:11:22 04/18/2022 [id number] high cholesterol lifestyle changes Not available 04/19/2022 09:00:24 advance directives: care instructions Not available 04/19/2022 09:00:24 preventing falls : care instructions Not available 04/19/2022 09:00:24 hearing loss: ca re instructions Not available 04/19/2022 09:00:24 well visit, over 65: care instructions Not available 04/19/2022 09:00:24 We completed you Medicare Wellness exam today. This was an opportunity to assess your overall well being including your ability to care for yourself, your mobility, memory, mental health, as well as your safety. With advancing age, it is important to assign someone in your life as your Health Care Proxy (HCP). This person should know what is important to you and what your wishes are for medical procedures if you cannot communicate your wishes yourself (severe illness, unconsciousness). Today, we made sure you had a Health Care Proxy form completed or gave you one to complete and return to us. In addition, today we started a conversation about your End of Life wishes. These conversations will continue over the years. Medical Orders for Life Sustaining Treatment (also known as a MOLST form) was given to you to complete at this visit or at a future visit. Vision and Hearing are senses that are critically important as we age. When impaired, they can contribute to memory loss, falls, and make it harder to drive, talk to family and friends, and engage in the world. Please get your vision checked yearly and your hearing checked when you start to notice hearing loss. Tetanus Vaccine : once every 10 years. Pneumonia Vaccine : PCV 23 and PC13 or PC20: once after age 65. Shingles Vaccine : 2 shots over 2-6 months, once in your life, after age 50. (Please check with pharmacy about receiving your vaccine there as [facility] does not offer this vaccine.) Influenza Vaccine : Flu shot yearly Covid Vaccine : Make sure you have gotten the most up-to-date Covid vaccine Your personal health goal for the year is: Not available 04/19/2022 08:53:28 05/07/2023 [id number] advance directives: care instructions Not available 05/07/2023 10:44:32 preventing falls : care instructions Not available 05/07/2023 10:44:32 hearing loss: ca re instructions Not available 05/07/2023 10:44:32 well visit, over 65: care instructions Not available 05/07/2023 10:44:32 CCM: The provide r and patient discussed the Chronic Care Management program, including the services provided, and any fees associated with them. Not available 05/07/2023 10:01:44 Reason for Referral Doula Referral for Ankylosing spondylitis Referring Physician: Che Coburn, Family Medicine, Encounter Date: 04/18/2022 Results Created Date Observation Date Name Description Value Unit Range Abnormal Flag Note LastModifiedBy Organization Detail LastModifiedTime 12/11/19 21 12/11/2020 BASIC METAB OLIC PANEL glucose 89 mg/dL 70-100 Not Available [address], [address], 12/11/2020 11:57:33 12/11/19 21 12/11/2020 BASIC METAB OLIC PANEL BUN 25 mg/dL 7-18 high Not Available [address], [address], 12/11/2020 11:57:33 12/11/1912/11/2020 BASIC METAB OLIC PANEL creatinine 0.8 mg/dL 0.8-1. 3 Not Available [address], [address], 12/11/2020 11:57:33 12/11/19 21 12/11/2020 BASIC METAB OLIC PANEL B/C 31.3 ratio Not Available [address], [address], 12/11/2020 11:57:33 12/11/1912/11/2020 BASIC METAB OLIC PANEL GFR -non 80.6 mL/mi n Recom michael d GFR by the Natio nal Kidne y Found ation >60 mL/mi n/1.7 3m2 - Dahiana l <60 mL/mi n/1.7 3m2 - Chron ic Kidne y Disea se <15 mL/mi n/1.7 3m2 - Kidne y Failu re Not Available [address], [address], 12/11/2020 11:57:33 12/11/19 21 12/11/2020 BASIC METAB OLIC PANEL GFR - if 92.7 mL/mi n For Afric an Ameri can patie nts: Resul ts Multi plied by 1.21 Not Available [address], [address], 12/11/2020 11:57:33 12/11/19 21 12/11/2020 BASIC METAB OLIC PANEL sodium 137 mmol/ L 136-14 5 Not Available [address], [address], 12/11/2020 11:57:33 12/11/19 21 12/11/2020 BASIC METAB OLIC PANEL potassium 4.9 mmol/ L 3.5-5. 1 Not Available [address], [address], 12/11/2020 11:57:33 12/11/19 21 12/11/2020 BASIC METAB OLIC PANEL chloride 98 mmol/ L 96-107 Not Available [address], [address], 12/11/2020 11:57:33 12/11/19 21 12/11/2020 BASIC METAB OLIC PANEL anion gap 9.7 5.0-15 .0 Not Available [address], [address], 12/11/2020 11:57:33 12/11/19 21 12/11/2020 BASIC METAB OLIC PANEL CO2 29 mmol/ L 21-32 Not Available [address], [address], 12/11/2020 11:57:33 12/11/19 21 12/11/2020 BASIC METAB OLIC PANEL calcium 8.6 mg/dL 8.5-10 .3 Not Available [address], [address], 12/11/2020 11:57:33 07/30/19 22 07/29/2021 CBC WBC 7.55 K/? ? ?L 3.98-1 0.04 Not Available [address], [address], 07/29/2021 15:21:06 07/30/19 22 07/29/2021 CBC RBC 3.67 M/? ? ?L 3.93-5 .22 low Not Available [address], [address], 07/29/2021 15:21:06 07/30/19 22 07/29/2021 CBC HGB 10.8 g/dL 11.2-1 5.7 low Not Available [address], [address], 07/29/2021 15:21:06 07/30/19 22 07/29/2021 CBC HCT 33.8 % 34.1-4 4.9 low Not Available [address], [address], 07/29/2021 15:21:06 07/30/19 22 07/29/2021 CBC MCV 92.1 fL 79.4-9 4.8 Not Available [address], [address], 07/29/2021 15:21:06 07/30/19 22 07/29/2021 CBC MCH 29.4 pg 25.6-3 2.2 Not Available [address], [address], 07/29/2021 15:21:06 07/30/19 22 07/29/2021 CBC MCHC 32.0 g/dL 32.2-3 5.5 low Not Available [address], [address], 07/29/2021 15:21:06 07/30/19 22 07/29/2021 CBC plt 252 K/? ? ?L 182-36 9 Not Available [address], [address], 07/29/2021 15:21:06 07/30/19 22 07/29/2021 CBC MPV 9.4 fL 9.4-12 .3 Not Available [address], [address], 07/29/2021 15:21:06 07/30/19 22 07/29/2021 CBC neut% 55.0 % 34.0-7 1.1 Not Available [address], 67146, 07/29/2021 15:21:06 07/30/19 22 07/29/2021 CBC neut# 4.15 1.56-6 .13 Not Available [address], [address], 07/29/2021 15:21:06 07/30/19 22 07/29/2021 CBC lymph % 36.0 % 19.3-5 1.7 Not Available [address], [address], 07/29/2021 15:21:07/30/19 22 07/29/2021 CBC lymph # 2.72 K/? ? ?L 1.18-3 .74 Not Available [address], [address], 07/29/2021 15:21:06 07/30/19 22 07/29/2021 CBC mono% 6.9 % 4.7-12 .5 Not Available [address], [address], 07/29/2021 15:21:06 07/30/19 22 07/29/2021 CBC mono# 0.52 0.24-0 .56 Not Available [address], [address], 07/29/2021 15:21:06 07/30/19 22 07/29/2021 CBC eo% 1.2 % 0.7-5. 8 Not Available [address], [address], 07/29/2021 15:21:06 07/30/19 22 07/29/2021 CBC eo# 0.09 0.04-0 .36 Not Available [address], [address], 07/29/2021 15:21:06 07/30/19 22 07/29/2021 CBC baso% 0.8 % 0.1-1. 2 Not Available [address], [address], 07/29/2021 15:21:06 07/30/19 22 07/29/2021 CBC baso# 0.06 0.00-0 .08 Not Available [address], [address]696, 07/29/2021 15:21:07/30/19 22 07/29/2021 CBC RDW-CV 13.4 % 11.7-1 4.4 Not Available [address], [address], 07/29/2021 15:21:07/30/19 22 07/29/2021 CBC Ig% 0.100 % 0.000- 1.500 Ig % >0.5 Indic ates possi ble Left Shift Not Available [address], [address], 07/29/2021 15:21:07/30/19 22 07/29/2021 CBC Ig# 0.010 0.000- 0.093 Not Available [address], [address], 07/29/2021 15:21:06 07/30/19 22 07/29/2021 CBC NRBC% 0.0 % 0.0-0. 2 Not Available [address], [address], 07/29/2021 15:21:06 07/30/19 22 07/29/2021 CBC NRBC# 0.000 0.000- 0.012 Not Available [address], [address], 07/29/2021 15:21:06 07/30/19 22 07/29/2021 ESR sed rate 45.0 0.0-15 .0 high Not Available [address], [address], 07/29/2021 16:18:24 07/30/19 22 07/30/2021 FREE T4 free T4 1.41 NG/dL 0.75-1 .54 Not Available [address], [address], 07/30/2021 12:47:26 07/30/19 22 07/30/2021 TSH TSH 3.94 uIU/m L 0.50-6 .00 The Ameri can Colle ge of Endoc rinol ogy and Ameri can Thyro id Assoc iatio n recom mend goal TSH value s betwe en 0.4-4 .0 mIU/m L. Not Available [address], [address], 07/30/2021 12:47:27 07/30/19 22 07/30/2021 COMP. METAB OLIC PANEL glucose 86 mg/dL 70-100 Not Available [address], [address], 07/30/2021 16:36:33 07/30/19 22 07/30/2021 COMP. METAB OLIC PANEL BUN 21 mg/dL 7-18 high Not Available [address], [address], 07/30/2021 16:36:33 07/30/19 22 07/30/2021 COMP. METAB OLIC PANEL creatinine 0.8 mg/dL 0.8-1. 3 Not Available [address], [address], 07/30/2021 16:36:33 07/30/19 22 07/30/2021 COMP. METAB OLIC PANEL B/C 26.3 ratio Not Available [address], [address], 07/30/2021 16:36:33 07/30/19 22 07/30/2021 COMP. METAB OLIC PANEL GFR >=60ML /MIN mL/mi n normal >=60m L/min - Dahiana l or midly reduc ed <60mL /min- Decre ased kidne y funct ion <15mL /min - Kidne y failu re [facility] calcu lates estim ated Glome rular Filtr ation Rate (eGFR ) using the Chron ic Kidne y Disea se Epide miolo gy Colla borat ion (CKD- EPI) Equat ion (Inke r et. al 2020) as recom michael d by the Natio nal Kidne y Found ation . eGFR is based on age, serum creat inine , and sex. CKD-E PI does not calcu late eGFR by race, does not apply to child rossy (age <18 years ), and shoul d not be used in pregn french. Not Available [address], [address], 07/30/2021 16:36:33 07/30/19 22 07/30/2021 COMP. METAB OLIC PANEL sodium 136 mmol/ L 136-14 5 Not Available [address], [address], 07/30/2021 16:36:33 07/30/19 22 07/30/2021 COMP. METAB OLIC PANEL potassium 4.6 mmol/ L 3.5-5. 1 Not Available [address], [address], 07/30/2021 16:36:33 07/30/19 22 07/30/2021 COMP. METAB OLIC PANEL chloride 98 mmol/ L 96-107 Not Available [address], [address], 07/30/2021 16:36:33 07/30/19 22 07/30/2021 COMP. METAB OLIC PANEL anion gap 10.3 5.0-15 .0 Not Available [address], [address], 07/30/2021 16:36:33 07/30/19 22 07/30/2021 COMP. METAB OLIC PANEL CO2 28 mmol/ L 21-32 Not Available [address], [address], 07/30/2021 16:36:33 07/30/19 22 07/30/2021 COMP. METAB OLIC PANEL calcium 8.8 mg/dL 8.5-10 .3 Not Available [address], [address], 07/30/2021 16:36:33 07/30/19 22 07/30/2021 COMP. METAB OLIC PANEL total protein 7.7 g/dL 6.4-8. 2 Not Available [address], [address], 07/30/2021 16:36:33 07/30/19 22 07/30/2021 COMP. METAB OLIC PANEL albumin 4.3 g/dL 3.4-5. 0 Not Available [address], [address], 07/30/2021 16:36:33 07/30/19 22 07/30/2021 COMP. METAB OLIC PANEL globulin 3.4 g/dL Not Available [address], [address], 07/30/2021 16:36:33 07/30/19 22 07/30/2021 COMP. METAB OLIC PANEL A/G 1.3 ratio 0.8-2. 0 Not Available [address], [address], 07/30/2021 16:36:33 07/30/19 22 07/30/2021 COMP. METAB OLIC PANEL total bilirubin 0.20 mg/dL 0.00-1 .00 Not Available [address], [address], 07/30/2021 16:36:33 07/30/19 22 07/30/2021 COMP. METAB OLIC PANEL AST 18 U/L 0-37 Not Available [address], [address], 07/30/2021 16:36:33 07/30/19 22 07/30/2021 COMP. METAB OLIC PANEL ALT 19 U/L 6-63 Not Available [address], [address], 07/30/2021 16:36:33 07/30/19 22 07/30/2021 COMP. METAB OLIC PANEL alk. phos. 83 U/L 50-136 Not Available [address], [address], 07/30/2021 16:36:33 07/30/19 22 07/30/2021 C-ILDA CTIVE PROTE IN-QU ANTIT ATIVE C-reactive protein -quant 8.5 mg/L 0.0-9. 0 Not Available [address], [address], 07/30/2021 16:36:34 07/30/19 22 08/02/2021 QUANT IFERO N TB GOLD PLUS, COLIN nil 0.02 IU/mL Not Available [address], [address], 08/02/2021 13:21:56 07/30/19 22 08/02/2021 QUANT IFERO N TB GOLD PLUS, COLIN TB1 antigen 0.08 IU/mL Not Available [address], [address], 08/02/2021 13:21:56 07/30/19 22 08/02/2021 QUANT IFERO N TB GOLD PLUS, COLIN TB2 antigen 0.02 IU/mL Not Available [address], [address], 08/02/2021 13:21:56 07/30/19 22 08/02/2021 QUANT IFERO N TB GOLD PLUS, COLIN mitogen 18.49 IU/mL Not Available [address], [address], 08/02/2021 13:21:56 07/30/19 22 08/02/2021 QUANT IFERO N TB GOLD PLUS, COLIN tbgp NEGATI VE negati ve Not Available [address], [address], 08/02/2021 13:21:56 07/30/19 22 08/05/2021 VITAM IN B12 vitamin B12 508 pg/mL 230-10 50 Not Available [address], [address], 08/05/2021 13:39:27 07/30/19 22 08/05/2021 FOLAT E folate 13 NG/mL 3-16 Not Available [address], [address], 08/05/2021 13:39:28 03/12/20 22 03/12/2022 WOUND CULTU RE/SM EAR special requests None Not Available [facility] [address] [place] [address], [address], 03/14/2022 11:50:35 03/12/20 22 03/13/2022 WOUND CULTU RE/SM EAR gram stain NO CELLS OR ORGANI SMS Not Available [facility]) [address] [place] [address], [address], 03/14/2022 11:50:35 03/12/20 22 03/14/2022 WOUND CULTU RE/SM EAR wound culture/smea r abnormal COAG NEGAT ANNIKA STAPH YLOCO CCUS STAPH YLOCO CCUS AUREU S Not Available [facility] ([facility]) [address] [place], [address], 03/14/2022 11:50:35 03/12/20 22 03/14/2022 WOUND CULTU RE/SM EAR penicillin g >=0.5 resistant Not Available [facility] ([facility]) [address] [place], [address], 03/14/2022 11:50:35 03/12/20 22 03/14/2022 WOUND CULTU RE/SM EAR clindamycin <=0.25 susceptib le Not Available [facility] ([facility]) [address] [place], [address], 03/14/2022 11:50:35 03/12/20 22 03/14/2022 WOUND CULTU RE/SM EAR erythromycin <=0.25 susceptib le Not Available [facility] ([facility]) [address] [place] [address], [address], 03/14/2022 11:50:35 03/12/20 22 03/14/2022 WOUND CULTU RE/SM EAR gentamicin <=0.5 susceptib le Not Available [facility] [address] [place], [address], 03/14/2022 11:50:35 03/12/20 22 03/14/2022 WOUND CULTU RE/SM EAR inducible clindamycin negative Not Available [facility] ([facility]) [address] [place], [address], 03/14/2022 11:50:35 03/12/20 22 03/14/2022 WOUND CULTU RE/SM EAR levofloxacin 0.25 susceptib le Not Available [facility] ([facility]) [address] [place], [address], 03/14/2022 11:50:35 03/12/20 22 03/14/2022 WOUND CULTU RE/SM EAR oxacillin(me thicillin) 0.5 susceptib le Not Available [facility] ([facility]) [address] [place] [address], [address], 03/14/2022 11:50:35 03/12/20 22 03/14/2022 WOUND CULTU RE/SM EAR rifampin <=0.5 susceptib le Not Available [facility] ([facility]) [address] [place], [address], 03/14/2022 11:50:35 03/12/20 22 03/14/2022 WOUND CULTU RE/SM EAR tetracycline <=1 susceptib le Not Available [facility]) [address] [place], [address], 03/14/2022 11:50:35 03/12/20 22 03/14/2022 WOUND CULTU RE/SM EAR trimethoprim /sulfamethox azole <=10 susceptib le Not Available [facility] [address] [place], [address], 03/14/2022 11:50:35 03/12/20 22 03/14/2022 WOUND CULTU RE/SM EAR vancomycin 1 susceptib le Not Available [facility] [address] [place], [address], 03/14/2022 11:50:35 03/12/20 22 03/14/2022 WOUND CULTU RE/SM EAR cefoxitin negative Not Available [facility] [address] [place], [address], 03/14/2022 11:50:35 03/12/20 22 03/14/2022 WOUND CULTU RE/SM EAR amoxicillin + clavulanate susceptib le Not Available [facility] [address] [place], [address], 03/14/2022 11:50:35 03/12/20 22 03/14/2022 WOUND CULTU RE/SM EAR ampicillin + sulbactam susceptib le Not Available [facility] [address] [place], [address], 03/14/2022 11:50:35 03/12/20 22 03/14/2022 WOUND CULTU RE/SM EAR cefuroxime susceptib le Not Available [facility] [address] [place], [address], 03/14/2022 11:50:35 03/12/20 22 03/14/2022 WOUND CULTU RE/SM EAR cefotaxime susceptib le Not Available [facility] ([facility] [address] [place], [address], 03/14/2022 11:50:35 03/12/20 22 03/14/2022 WOUND CULTU RE/SM EAR ceftriaxone susceptib le Not Available [facility] ([facility]) [address] [place], [address], 03/14/2022 11:50:35 04/11/19 23 04/11/2022 CBC WBC 5.85 K/? ? ?L 3.98-1 0.04 Not Available [address], [address], 04/11/2022 14:29:43 04/11/19 23 04/11/2022 CBC RBC 3.71 M/? ? ?L 3.93-5 .22 low Not Available [address], [address], 04/11/2022 14:29:43 04/11/19 23 04/11/2022 CBC HGB 10.7 g/dL 11.2-1 5.7 low Not Available [address], [address], 04/11/2022 14:29:43 04/11/19 23 04/11/2022 CBC HCT 34.2 % 34.1-4 4.9 Not Available [address], [address], 04/11/2022 14:29:43 04/11/19 23 04/11/2022 CBC MCV 92.2 fL 79.4-9 4.8 Not Available [address], [address], 04/11/2022 14:29:43 04/11/19 23 04/11/2022 CBC MCH 28.8 pg 25.6-3 2.2 Not Available [address], [address], 04/11/2022 14:29:43 04/11/19 23 04/11/2022 CBC MCHC 31.3 g/dL 32.2-3 5.5 low Not Available [address], [address], 04/11/2022 14:29:43 04/11/19 23 04/11/2022 CBC plt 255 K/? ? ?L 182-36 9 Not Available [address], [address], 04/11/2022 14:29:43 04/11/19 23 04/11/2022 CBC MPV 9.9 fL 9.4-12 .3 Not Available [address], [address], 04/11/2022 14:29:43 04/11/19 23 04/11/2022 CBC neut% 41.0 % 34.0-7 1.1 Not Available [address], [address], 04/11/2022 14:29:43 04/11/19 23 04/11/2022 CBC neut# 2.40 1.56-6 .13 Not Available [address], [address], 04/11/2022 14:29:43 04/11/19 23 04/11/2022 CBC lymph % 47.7 % 19.3-5 1.7 Not Available [address], [address], 04/11/2022 14:29:43 04/11/19 23 04/11/2022 CBC lymph # 2.79 K/? ? ?L 1.18-3 .74 Not Available [address], [address], 04/11/2022 14:29:43 04/11/19 23 04/11/2022 CBC mono% 7.4 % 4.7-12 .5 Not Available [address], [address], 04/11/2022 14:29:43 04/11/19 23 04/11/2022 CBC mono# 0.43 0.24-0 .56 Not Available [address], [address], 04/11/2022 14:29:43 04/11/19 23 04/11/2022 CBC eo% 2.7 % 0.7-5. 8 Not Available [address], [address], 04/11/2022 14:29:43 04/11/19 23 04/11/2022 CBC eo# 0.16 0.04-0 .36 Not Available [address], [address], 04/11/2022 14:29:43 04/11/19 23 04/11/2022 CBC baso% 1.0 % 0.1-1. 2 Not Available [address], [address], 04/11/2022 14:29:43 04/11/19 23 04/11/2022 CBC baso# 0.06 0.00-0 .08 Not Available [address], [address], 04/11/2022 14:29:43 04/11/19 23 04/11/2022 CBC RDW-CV 13.3 % 11.7-1 4.4 Not Available [address], [address], 04/11/2022 14:29:43 04/11/19 23 04/11/2022 CBC Ig% 0.200 % 0.000- 1.500 Ig % >0.5 Indic ates possi ble Left Shift Not Available [address], [address], 04/11/2022 14:29:43 04/11/19 23 04/11/2022 CBC Ig# 0.010 0.000- 0.093 Not Available [address], [address], 04/11/2022 14:29:43 04/11/19 23 04/11/2022 CBC NRBC% 0.0 % 0.0-0. 2 Not Available [address], [address], 04/11/2022 14:29:43 04/11/19 23 04/11/2022 CBC NRBC# 0.000 0.000- 0.012 Not Available [address], [address], 04/11/2022 14:29:43 04/11/19 23 04/11/2022 COMP. METAB OLIC PANEL glucose 90 mg/dL 70-100 Not Available [address], [address], 04/11/2022 16:24:42 04/11/19 23 04/11/2022 COMP. METAB OLIC PANEL BUN 15 mg/dL 7-18 Not Available [address], [address], 04/11/2022 16:24:42 04/11/19 23 04/11/2022 COMP. METAB OLIC PANEL creatinine 0.8 mg/dL 0.8-1. 3 Not Available [address], [address], 04/11/2022 16:24:42 04/11/19 23 04/11/2022 COMP. METAB OLIC PANEL B/C 18.8 ratio Not Available [address], [address], 04/11/2022 16:24:42 04/11/19 23 04/11/2022 COMP. METAB OLIC PANEL GFR >=60ML /MIN mL/mi n normal >=60m L/min - Dahiana l or midly reduc ed <60mL /min- Decre ased kidne y funct ion <15mL /min - Kidne y failu re [facility] calcu lates estim ated Glome rular Filtr ation Rate (eGFR ) using the Chron ic Kidne y Disea se Epide miolo gy Colla borat ion (CKD- EPI) Equat ion (Inke r et. al 2020) as recom michael d by the Natio nal Kidne y Found ation . eGFR is based on age, serum creat inine , and sex. CKD-E PI does not calcu late eGFR by race, does not apply to child rossy (age <18 years ), and shoul d not be used in pregn french. Not Available [address], [address], 04/11/2022 16:24:42 04/11/19 23 04/11/2022 COMP. METAB OLIC PANEL sodium 137 mmol/ L 136-14 5 Not Available [address], [address], 04/11/2022 16:24:42 04/11/19 23 04/11/2022 COMP. METAB OLIC PANEL potassium 4.8 mmol/ L 3.5-5. 1 Not Available [address], [address], 04/11/2022 16:24:42 04/11/19 23 04/11/2022 COMP. METAB OLIC PANEL chloride 98 mmol/ L 96-107 Not Available [address], [address], 04/11/2022 16:24:42 04/11/19 23 04/11/2022 COMP. METAB OLIC PANEL anion gap 12.2 5.0-15 .0 Not Available [address], [address], 04/11/2022 16:24:42 04/11/19 23 04/11/2022 COMP. METAB OLIC PANEL CO2 27 mmol/ L 21-32 Not Available [address], [address], 04/11/2022 16:24:42 04/11/19 23 04/11/2022 COMP. METAB OLIC PANEL calcium 9.0 mg/dL 8.5-10 .3 Not Available [address], [address], 04/11/2022 16:24:42 04/11/19 23 04/11/2022 COMP. METAB OLIC PANEL total protein 7.4 g/dL 6.4-8. 2 Not Available [address], [address], 04/11/2022 16:24:42 04/11/19 23 04/11/2022 COMP. METAB OLIC PANEL albumin 3.8 g/dL 3.4-5. 0 Not Available [address], [address], 04/11/2022 16:24:42 04/11/19 23 04/11/2022 COMP. METAB OLIC PANEL globulin 3.6 g/dL Not Available [address], [address], 04/11/2022 16:24:42 04/11/19 23 04/11/2022 COMP. METAB OLIC PANEL A/G 1.1 ratio 0.8-2. 0 Not Available [address], [address], 04/11/2022 16:24:42 04/11/19 23 04/11/2022 COMP. METAB OLIC PANEL total bilirubin 0.40 mg/dL 0.00-1 .00 Not Available [address], [address], 04/11/2022 16:24:42 04/11/19 23 04/11/2022 COMP. METAB OLIC PANEL AST 20 U/L 0-37 Not Available [address], [address], 04/11/2022 16:24:42 04/11/19 23 04/11/2022 COMP. METAB OLIC PANEL ALT 22 U/L 6-63 Not Available [address], [address], 04/11/2022 16:24:42 04/11/19 23 04/11/2022 COMP. METAB OLIC PANEL alk. phos. 97 U/L 50-136 Not Available [address], [address], 04/11/2022 16:24:42 04/11/19 23 04/11/2022 LIPID PANEL cholesterol 289 mg/dL <200 mg/dl Danika able 200-2 39 mg/dl Borde rline High >240 mg/dl High Not Available [address], [address], 04/11/2022 16:24:43 04/11/19 23 04/11/2022 LIPID PANEL triglyceride s 105 mg/dL <150 mg/dL Dahiana l 150-1 99 mg/dL Borde rline High 200-4 99 mg/dL High >500 mg/dL Very High Not Available [address], [address], 04/11/2022 16:24:43 04/11/19 23 04/11/2022 LIPID PANEL direct HDL 72 mg/dL <40 mg/dl - Major Risk for CHD >60 mg/dl - Negat annika Risk for CHD Not Available [address], [address], 04/11/2022 16:24:43 04/11/19 23 04/11/2022 LDL - CALCU LATED LDL - calculated 196.0 RISK CATEG ORY LDL GOAL _ CHD or CHD Risk Equiv alent s <100 mg/dl (10-y ear risk >20%) 2+ Risk Facto rs <130 mg/dl (10-y ear risk <= 20%) 0-1 Risk Facto r? <160 mg/dl ? Almos t all peopl e with 0-1 risk facto r have a 10 year risk <10%, thus 10 year risk asses ment in peopl e with 0-1 risk facto r is not neces juan jose. Not Available [address], [address], 04/11/2022 16:24:44 12/26/1911/12/2022 bone densi ty No observ ation record ed. [facility] [place] [address] [place], [address], 01/02/2023 08:47:16 Result Notes None recorded. Problems Name Problem SNOMED Code Status Onset Date Resolution Date Notes Provider Name and Address Organization Details Recorded Time Ankylosi ng spondyli tis 7452648 Active Lopez Beavers MD [address] [place] [address], [address] , [facility] 6 15:15:10 Pain in right lower limb 207830056 Active Flaca Rodrigez, PT [address] [place] [address], [address] , [facility] 5 15:14:12 Backache 429621223 Active Flaca Rodrigez, PT [address] [place] [address], [address] , [facility] 6 11:06:45 Osteopor osis 05278266 Active +osteopo rosis 2022 bone density Josselin Coburn MD [address] [place] [address], [address] , [facility] 4 07:55:38 Pain of hip region 63775126 Active Lopez Beavers MD [address] [place] [address], [address] , [facility] 6 15:15:10 Fatigue 69633170 [facility] 18:07:23 Hyperlip idemia 51333966 Active 2022 LDL close to 200 03/2022 Che Coburn MD [address] [place] [address], [address] , [facility] 3 08:06:33 Mass of left breast 59451526254 372956 Completed 202205/07/2023 Removal Reason: resolved Che Coburn MD [address] [place] [address], [address] , [facility] 4 20:31:13 Mixed hyperlip idemia 935515154 Active 2022 Che Coburn MD [address] [place] [address], [address] , [facility] 3 09:04:21 Atopic dermatit is 52047970 Active 2022 Che Coburn MD [address] [place] [address], [address] , [facility] 3 09:05:06 Menopaus al symptom 53739776 Completed 200402/09/2013 Not Available [facility] 3 02:01:29 Malaise and fatigue 841889217 Completed 200402/09/2013 Not Available [facility] 3 02:00:18 Problem Notes None recorded. Procedures Surgical History Date Name Laterality Status Provider Name and Address Organization Details Recorded Time 05/07/19 24 Medicare Wellness Visit completed LAWRENCE Rodriguez [facility] 05/07/2023 09:48:15 04/18/19 23 Medicare Wellness Visit completed Rachel Bran [facility] 04/17/2022 16:27:21 04/16/19 22 Medicare Wellness Visit completed Rachel Bran [facility] 04/15/2021 17:28:50 04/16/19 22 Alcohol use screening completed Rachel Bran [facility] 04/15/2021 17:28:50 04/16/19 22 Cardiovascular disease risk reduction counseling completed Rachel Bran [facility] 04/15/2021 17:28:50 09/04/19 21 Izzy - EGD completed Bobby Magana MD [address] [place], [address], [facility] 09/03/2020 10:56:31 08/06/19 18 Physical Activity Counselling completed Michela Desouza, PT [address] [place], [address], [facility] 08/06/2017 21:47:24 08/06/19 18 [address]: PT Eval Low Complexity completed Michela Desouza, PT [address] [place], [address], [facility] 08/06/2017 21:47:24 02/08/20 15 [address]: Therapeutic Exercise completed Michela Desouza, PT [address] [place], [address], [facility] 02/08/2015 13:23:30 01/30/20 15 [address]: PT Evaluation completed Michela Desouza, PT [address] [place], [address], [facility] 01/29/2015 12:06:06 Imaging Results Imaging Date Name Status LastModified by Organiz ation Details LastModified Time 11/12/2022 bone density completed FLORENCIO Schwab [facility] [address] [place] [address] [place], [address], 01/02/2023 08:47:16 Procedure Notes None recorded. Medical Equipment None Reported. Allergies No known drug allergies Medications Name Sig Start Date Stop Date Status Note LastModified by Organization Details LastModified Time Prescript ion - New 05/07 completed Etoricox ib 90 mg Not Available Not Available Not Available amoxicill in 500 mg capsule TAKE 2 CAPSULES BY MOUTH TWICE DAILY FOR 14 DAYS 12/10 completed Not Available Not Available Not Available doxycycli ne hyclate 100 mg capsule TAKE 2 CAPSULES BY MOUTH ONCE 10/31 completed Not Available Not Available Not Available cefuroxim e axetil 250 mg tablet 07/17 completed Not Available Not Available Not Available clarithro mycin 500 mg tablet TAKE 1 TABLET BY MOUTH TWICE DAILY FOR 14 DAYS 12/10 completed Not Available Not Available Not Available famotidin e 40 mg tablet TAKE 1 TABLET BY MOUTH DAILY NEEDED 09/17 completed Not Available Not Available Not Available alendrona te 70 mg tablet TAKE 1 TABLET BY MOUTH ONCE A WEEK FIRST THING IN THE MORNING ON AN EMPTY STOMACH WITH A LARGE GLASS OF WATER (AT LEAST 6OZ) AND STAY UPRIGHT FOR 30 MINUTES 05/07 completed Not Available Not Available Not Available triamcino lone acetonide 0.1 % topical cream APPLY A THIN LAYER TO THE AFFECTED AREA(S) BY TOPICAL ROUTE 2 TIMES PER DAY 12/10 completed Not Available Not Available Not Available ondansetr on 8 mg disintegr ating tablet Place 1 tablet every 8 hours by translin gual route as needed for 5 days. 12/08 completed Not Available Not Available Not Available hydrocort isone acetate 25 mg rectal supposito ry INSERT 1 SUPPOSIT ORY RECTALLY TWICE DAILY FOR 14 DAYS 10/31 completed Not Available Not Available Not Available Aleve 220 mg tablet Take 1 tablet every 12 hours by oral route as needed. 06/13 completed Not Available Not Available Not Available meloxicam 7.5 mg tablet Take 1 tablet every day by oral route. 10/24 completed Not Available Not Available Not Available oxycodone -acetamin ophen 5 mg-325 mg tablet 07/17 completed Not Available Not Available Not Available famotidin e 20 mg tablet TAKE 1 TABLET BY MOUTH TWICE DAILY 09/17 completed Sc not taking Not Available Not Available Not Available triamcino lone acetonide 0.1 % topical ointment APPLY A THIN LAYER OF OINTMENT TOPICALL Y TO THE AFFECTED AREA(S) TWICE DAILY 05/07 completed Not Available Not Available Not Available ascorbate calcium (vitamin C) 500 mg tablet Take 1 tablet every day by oral route. 05/07 completed OTC Pt takes occasion ally not taking 04/18/22 mk Not Available Not Available Not Available ranitidin e 300 mg capsule Take 1 capsule every day by oral route. 06/25 completed Not Available Not Available Not Available indometha victor manuel 25 mg capsule Take 1 capsule twice a day by oral route after meals. 06/13 completed Not Available Not Available Not Available omeprazol e 20 mg capsule,d elayed release TAKE 1 CAPSULE BY MOUTH TWICE DAILY FOR 6 DAYS 12/10 completed Not Available Not Available Not Available etodolac 400 mg tablet 1 po BID with food. 10/31 completed Not Available Not Available Not Available mupirocin 2 % topical ointment APPLY OINTMENT TOPICALL Y TO AFFECTED AREA TWICE DAILY 05/07 completed Not Available Not Available Not Available Transderm -Scop 1 mg over 3 days transderm al patch 07/17 completed Not Available Not Available Not Available methylpre dnisolone 4 mg tablets in a dose pack 08/07 completed not taking Not Available Not Available Not Available diazepam 5 mg tablet 07/17 completed Not Available Not Available Not Available Vitamin D 05/07 completed 1999 IU/d Not Available Not Available Not Available Estrace 0.5% cream three times per week 10/31 completed Not Available Not Available Not Available Humira(CF ) Pen 40 mg/0.4 mL subcutane ous kit Inject 0.4 mL every 2 weeks by subcutan eous route for 28 days. 05/07 completed Not Available Not Available Not Available Vitals Date Recorded Body height Body mass index (BMI) Body weight Heart rate Systolic blood pressure Diastolic blood pressure Provider Name and Address Organization Details Last Updated DateTime 1 153.67 cm 20 kg/m2 99593.6 1 g 76 /min 126 mm[Hg] 82 mm[Hg] Marialuisa Álvarez LPN [facility] 1 13:06:24 Date Recorded Body height Body mass index (BMI) Body weight Heart rate Systolic blood pressure Diastolic blood pressure Provider Name and Address Organization Details Last Updated DateTime 2 154.31 cm 19 kg/m2 23304.2 4 g 80 /min 150 mm[Hg] 80 mm[Hg] Rachel Bran [facility] 2 10:33:19 Date Recorded Body height Body mass index (BMI) Body weight Heart rate Systolic blood pressure Diastolic blood pressure Provider Name and Address Organization Details Last Updated DateTime 2 154.31 cm 20.3 kg/m2 19436.6 7 g 75 /min 128 mm[Hg] 76 mm[Hg] Tory Ramirez LPN [facility] 2 13:01:16 Date Recorded Body height Body mass index (BMI) Body weight Heart rate Systolic blood pressure Diastolic blood pressure Provider Name and Address Organization Details Last Updated DateTime 3 153.67 cm 20 kg/m2 70793.6 1 g 80 /min 138 mm[Hg] 70 mm[Hg] Rachelfranny Bran [facility] 3 10:36:59 Date Recorded Body weight Body mass index (BMI) Body height Heart rate Oxygen saturation Oxygen saturation in Arterial blood by Pulse oximetry Systolic blood pressure Diastolic blood pressure Provider Name and Address Organization Details Last Updated DateTime 4 18512.2 g 20 kg/m2 154.31 cm 82 /min 98 % 98 % 120 mm[Hg] 58 mm[Hg] LAWRENCE Rodriguez [facility] 4 09:59:48 Social History Question Answer Notes LastModified by Organization Details LastModified Time Tobacco Smoking Status Former Smoker 10 years 12 weekly [facility] 01/19/2015 14:24:37 Do You Wear A Helmet When Biking? No [email or web address] Information not available 04/16/2021 What Is Your Level Of Caffeine Consumption? Occasional Information not available 01/19/2015 How Much Tobacco Do You Chew? None Information not available 02/13/2015 What Type Of Diet Are You Following? REGULAR Information not available 01/19/2015 Which Illicit Or Recreational Drugs Have You Used? None Information not available 04/30/2016 Education 4 Year College Did Not Graduate Information not available 01/19/2015 Have There Been Any Changes To Your Family Or Social Situation? No Information not available 04/18/2022 When Did You Quit Smoking? 11-15yearssin [email or web address] pham Still Has One Very Ocassionally Information not available 01/19/2015 How Many Days In The Past Year Have You Had A Heavy Drinking Consumption (4+ Female, 5+ Male)? 0 Information not available 02/13/2015 Are There Any Guns Present In Your Home? No Information not available 01/19/2015 Do You Use Insect Repellent Routinely? Yes [email or web address] Information not available 04/16/2021 Live Alone Or With Others? With Others Information not available 01/19/2015 CCM Consent Discussion 05/07/2023 [email or web address] Information not available 05/11/2023 Marital Status Herber 1994 [email or web address] Informatio n not available 01/19/2015 Mosquito Repellent Used Routinely No Information not available 01/19/2015 What Was The Date Of Your Most Recent Tobacco Screening? 05/07/2023 Information not available 05/07/2023 How Many Children Do You Have? 0 Information not available 01/19/2015 What Is Your Current Pack Years? [email or web address] Information not available 01/19/2015 What Is Your Relationship Status? Lives With Information not available 04/16/2021 Do You Use Your Seat Belt Or Car Seat Routinely? Yes [email or web address] Information not available 04/16/2021 Seat Belts Used Routinely Yes Information not available 01/19/2015 Are You Sexually Active? No [email or web address] Information not available 04/16/2021 Smoke Alarm In Home Yes Information not available 01/19/2015 Do You Have Smoke And Carbon Monoxide Detectors In Your Home? No [email or web address] Information not available 04/16/2021 Are You Passively Exposed To Smoke? No [email or web address] Information not available 04/16/2021 General Stress Level Low Information not available 01/19/2015 Do You Use Sunscreen Routinely? Yes Information not available 01/19/2015 Sex: Female Functional Status Question Answer Note LastModified by Organizat ion Details LastModified Time Do you use any illicit or recreational drugs? No [email or web address] Information not available 04/16/2021 Do you or have you ever used any other forms of tobacco or nicotine? No [email or web address] Information not available 04/16/2021 What is your level of alcohol consumption? None [email or web address] Information not available 04/16/2021 Do you or have you ever used smokeless tobacco? Never used smokeless tobacco Information not available 11/01/2019 Are you currently employed? No [email or web address] Information not available 04/16/2021 What is your occupation? [employer] Information not available 01/19/2015 Do you or have you ever used e-cigarettes or vape? Never used electronic cigarettes Information not available 11/01/2019 What is your exercise level? Moderate walks daily 45 minutes or more Information not available 04/16/2021 Mental Status None recorded. Family History Relationship Description Onset Age of this Age Resolved Age Notes LastModified by Organization Details LastModified Time Mother Essential hypertension [email or web address] Not available 10:16:57 Mother Myocardial infarction 67 [email or web address] Not available 03/24 10:24:45 Father Alzheimer's disease 80 [email or web address] Not available 2022 10:16:57 Brother Myocardial infarction 57 [email or web address] Not available 03/24 10:24:45 Notes:aunts with arthritis Medical History Condition Response Osteoarthritis Y Spondylitis Y MUSCULOSKELETAL Gynecological History Statement/Question Response HPV N Hysterectomy N History of Abnormal Pap N Obstetrics History GPAL:G 0 P 0 0 0 0 Immunizations Vaccine Type Date Status Note Provider Nam e and Address Organization Details Recorded Time Tdap 4 completed Breanne Coker MA [facility] 01/13/2014 09:09:14 COVID-19, mRNA, LNP-S, PF, 30 mcg/0.3 mL dose 1 completed Rachel Bran [facility] 04/16/2021 10:26:54 COVID-19, mRNA, LNP-S, PF, 30 mcg/0.3 mL dose 1 completed Rachel Bran [facility] 04/16/2021 10:27:06 pneumococcal polysaccharide PPV23 2 completed Sherine Villar [facility] 04/18/2022 10:16:57 Past Encounters Encounter ID Performer Location Encounter Start Date Encounter Closed Date Diagnosis/Indication Diagnosis SNOMED-CT Code Diagnosis ICD10 Code Diagnosis Note [id number] [facility] - [address] [address] 03/28/2004 09:09:48 03/28/2004 09:10:04 [id number] Justin Marie MD , [facility], [address] [place] [address] 03/28/2004 08:20:35 03/29/2004 15:01:12 [id number] [facility] Radiology , [address] [address] 04/17/2004 15:50:03 04/18/2004 08:50:30 [id number] Bozena Callahan MD , [facility], [address] [place] [address] 01/19/2015 14:05:06 01/19/2015 15:12:26 Screening for disorder 969822455 Z72.89 Ankylosing spondylitis 9596342 M45.9 by pt hx, consisent with exam labs, imaging PT close F/U rheum referral Fatigue 87050070 R53.83 ? related to above screeing below Eruption [id number] R21 [id number] Michela Desouza , PT Physical Therapy, [address] [address] 01/29/2015 12:00:10 01/30/2015 11:22:01 Pain in right lower limb 977452463 M79.468 [id number] Michela Desouza , PT Physical Therapy, [address] [address] 02/07/2015 14:16:44 02/08/2015 14:28:51 Pain in right lower limb 546182568 M79.826 [id number] Bozena Callahan MD , [facility], [address] [place] [address] 02/13/2015 15:15:43 02/13/2015 15:44:07 Ankylosing spondylitis 0191995 M45.9 taking Aleve with effect, couldn't tolerate indomethic in wants to try PT in [facility] n discussed dx and tx today, reviewed other associated labs WNL pt wants to continue with Aleve for now instr to be cautious at gym, 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, 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, advised swimming for low impact has rheum apt in February [id number] Flaca Rodrigez, PT Physical Therapy, [address] [address] 02/28/2015 11:54:25 03/01/2015 07:24:46 Pain in right lower limb 766381788 M79.120 [id number] Flaca Rodrigez, PT Physical Therapy, [address] [address] 03/02/2015 12:55:55 03/02/2015 14:24:25 Pain in right lower limb 750091936 M79.356 [id number] Flaca Rodrigez, PT Physical Therapy, [address] [address] 03/19/2015 14:18:16 03/19/2015 15:24:06 Pain in right lower limb 483041815 M79.074 [id number] Lopez Beavers MD Rheumatol [facility], [facility] [address] [place] [address] 03/22/2015 12:43:59 03/22/2015 14:02:04 Ankylosing spondylitis 2977858 M45.0 Far advanced ankylosing spondyliti s with fusion of virtually the whole spine. I don't know her HLA B27 status, but presume it to be positive. 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 She has not had any know extra-ariana cular involvemen t with , though she does tell me of some calcium in her eye. I wonder if in the remote past she had uveitis. Currently, it is difficult to know how much active inflammati on is present. She is distressed by her lack of movement in the spine, but at this point, I am doubtful she can expect any significan t improvemen t. Aleve at low dose seems to be helpful for symptoms. I suggested a trial on an alternate NSAID (diclofena c) to see if it would be bettter tolerated, more effective, but she was reluctant. 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 We should add daily Prilosec. In the absence of any significan t spinal pain, with normal labs, CRP etc, it is, I think, a little difficult to make a case for more aggressive treatment as with DMARD or anti-TNF medication at the present time. Her only current painful complaint is R calf pain. There are no local findings and I expect that this represents a lumbar radiculopa thy. PT treatments have not been particular ly helpful fo this specific pain. She wants to try accupunctu re. I did say that if her current sx's are not improving, she should probably be seen at [facility]. Local lumbar injection may be useful. I am unable to access her x-rays today (technical problems), but report notes advanced involvemen t of SI joints. Postmenopausal state 764 [address] Z78.0 Several risk factors for osteoporos is. Needs BMD. Check Vit D. At very least should be taking calcium, vit d supplement . [id number] Flaca Rodrigez, PT Physical Therapy, [address] [address] 05/09/2015 11:49:38 05/14/2015 07:49:43 Ankylosing spondylitis 5175988 M45.0 Backache 015099871 M54.9 [id number] Flaca Rodrigez PT Physical Therapy, [address] [address] 05/15/2015 09:15:06 05/15/2015 10:41:50 Ankylosing spondylitis 9597065 M45.0 Backache 146105636 M54.9 [id number] Flaca Rodrigez PT Physical Therapy, [address] [address] 05/21/2015 09:52:01 05/21/2015 12:05:47 Ankylosing spondylitis 9936730 M45.0 Backache 976238773 M54.9 [id number] Lopez Beavers MD Rheumatol [place], [facility] [address] [place] [address] 06/14/2015 10:50:30 06/14/2015 11:53:33 Ankylosing spondylitis 7353732 M45.0 Far advanced ankylosing spondyliti s with fusion of virtually the whole spine. As discussed last time, I don't know her HLA B27 status, but presume it to be positive. 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 She has not had any know extra-ariana cular involvemen t with , though she does tell me of some calcium in her eye. I wonder if in the remote past she had uveitis. I reviewed x ray film of the neck with her at the visit. There are classic changes of . After the visit I was able to review x rays on thoracic and Lumbar spine. Lumbar spine has syndesmoph ytes and obvious erosive disease at SI joints. Thoracic spine has only very early syndesmoph yte. I had asked her to try an alternate NSAID last time, but she chose not to do so. Aleve helps but she does not like the way it makes her feel. I encouraged her to try one or two alternate NSAID medication . Should take with omeprazole as discussed last time. Try meloxicam 7.5 mg. If not tolerated or not helpful, call in a week or two and we can try alternativ e. She asked about biologic Tx. In the absence of any significan t spinal pain, with normal labs, CRP etc, it is, I think, a little difficult to make a case for more aggressive treatment as with DMARD or anti-TNF medication at the present time. She continues to ask what can be done to restore motion. Expalined it is probably more a matter of trying to preserve residual motion, but gently PT exercises are indicated. 25 minute appt, more than 50% counseling and coordinati ng care. Osteoporosis 94554631 M8 1.0 Mild osteoporos is on recent BMD. R femoral neck -2.8 Patient is resistant to taking medication . Fracture risk not extreme. Weight bearing exercise. Vit D supplement ation. Pain of hip region 99884 002 M25.551 Pain R hip region. A little stiff after sitting. Dixon laterally. Findings suggest mild trochanter ic bursitis. Hip itself has excellent ROM. Meloxicam may help. Ice after exercise Fatigue 66730456 R53.83 Not sure I can account for complaint of fatigue on the basis of her Ank Spond. Not hypersomnu lent She does snore. Could consider sleep study. [id number] Bozena Callahan MD , [facility], [address] [place] [address] 04/30/2016 14:04:43 05/02/2016 10:37:54 Adult health examination 551145078 Z00.00 see Risk Assessment and Lifestyle Change Counseling section above Eczema 64198983 L30.9 will txalready taking preventati ve measures Counseling 493003938 Z71 .9 Cosmetic surgery 5640779 0 Z41.1 Pt is appropriat e candidate for desired cosmetic procedure. She has no known pulmonary or cardiac disease. Ankylosing spondylitis 9352478 M45.9 sees rheumbette r but persistent Pain of hip region 72713 002 M25.559 likely related to aboveshe declines PTshe has medication for the Right lowe r quadrant pain 927014839 R10.31 trial gasexbenig n examwill follow if persistent Screening for malignant neoplasm of cervix 686560206 Z12.4 [id number] Lopez Beavers MD Rheumatol [facility], [facility] [address] [place] [address] 07/17/2017 12:48:12 07/17/2017 13:39:15 Ankylosing spondylitis 9179982 M45.0 Far advanced ankylosing spondyliti s with fusion of virtually the whole spine. 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 She has not had any know extra-ariana cular involvemen t with , though she does tell me of some calcium in her eye. I wonder if in the remote past she had uveitis. Over past 2 years, she feels as if she is losing function. Now needs to cross legs in order to put on socks. She does not have a lot of pain. She says she does stretching exercises but has only attended one PT session as she felt she herself knew better what to do. I have suggested another try at formal PT evaluation and treatment. She can probably restore some of the lost ROM. Also, will try to optimize anti-infla mmatory treatment. First try full dose meloxicam (15mg). If not significan tly helpful, should contact me in 1 week and will change to etodolac 400 tid.Add ranitidine for GI protection . If not significan tly improved, next step would be trial of Humira. Check quantifero n gold in anticipati on. (Thinks both mother and fatehre had TB.) Return 6 wks for re-eval. Osteoporosis 96508296 M8 1.0 Mild osteoporos is on recent BMD. R femoral neck -2.8 Patient is resistant to taking medication . Fracture risk not extreme. Weight bearing exercise. Vit D supplement ation.Repe at BMD scheduled for 2019. [id number] Michela Desouza , PT Physical Therapy, [facility] [address] [place] [address] 08/05/2017 16:16:17 08/10/2017 09:14:06 Ankylosing spondylitis 2230697 M45.0 62 year-old female with ankylosing spondyliti s who has noted progressiv e ROM loss in her spine. She is not interested in active therapy but did wish to document her ROM today for further comparison as necessary. She is continuing with an independen t home stretching program. [id number] Kenny Harrison MD , [facility], [address] [place] [address] 08/07/2017 09:34:24 08/07/2017 12:36:59 Lesion of tongue 233281035 K14.9 Patient with circumvall ate papillae on the right side of the tongue base. No LAD. No tenderness . No thrush or exudate. Informed this is a normal finding. Advised to monitor for any changes and contact the clinic it enlarges. Informed a biopsy may be necessary if any changing behavior of the lesion. Indication s for UC/ER use reviewed. [id number] Lopez Beavers MD Rheumatol ogy, [facility] [address] [place] [address] 09/01/2017 12:40:03 09/01/2017 13:42:52 Ankylosing spondylitis 7488359 M45.0 Far advanced ankylosing spondyliti s with fusion of virtually the whole spine. 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 She has not had any know extra-ariana cular involvemen t with , though she does tell me of some calcium in her eye. I wonder if in the remote past she had uveitis. Over past 2 years, she feels as if she is losing function. Now needs to cross legs in order to put on socks. She does not have a lot of pain. She says she does stretching exercises but has only attended one PT session as she felt she herself knew better what to do. Went to PT session basically to document ROM. Says considerab ly improved with the etodolac. She feels more flexible and comfortabl e.Some GI upset however. She was meant to be taking concurrent ranitidine . Plan: Continu etodolac 400 bid with food. Take daily ranitidine . If GI sxs persist, will either change to omeprazole or consider trial on Celebrex. If not significan tly improved, next step would be trial of Humira. Check quantifero n gold in anticipati on. (Thinks both mother and father had TB.): Result = NEGATIVE. Return 2 mo. Thigh pain 67220757 M79. 651 R anterior thigh pain, some tenderness . Hx of Ank Spond. I find weakness in hip flexors and atrophy, of quads. This all could be disuse atrophy, but I cannot discern the reason for pain and weakness. Possibly lumbar radiculopa thy.I suggested referral to PS&S for eval, EMG etc. She says sxs have been present and stable for quite a while; does not want to pursue at this time. Will check x rays. If she senses progressio n, then should be seen by PSS. Long-term current use of non-steroidal anti-inflammatory drug [id number] 46711 Z79.1 Discussed risks including especially GI ulcer and bleeding. She was meant to be taking concurrent ranitidine 300/d. Re-start this, but if persisting GI sxs, stop etodolac and call. Probably change to celebrex. [id number] Kenny Harrison MD , [facility], [address] [place] [address] 04/28/2018 11:04:41 04/29/2018 07:20:44 Adult health examination 535451139 Z00.00 see Risk Assessment and Lifestyle Change Counseling section above. [place] up to date 03/2014. Repeat in 10 years. Mammogram and Pap done in [facility] (01/2018) WNL. Also states had eye exam, early signs of cataracts. Stressed the importance of sunscreen while outside in the sun. Counseling 816254791 Z71 .9 Ankylosing spondylitis 7089293 M45.9 sees rheumatradha hills () . Recently ABHINAV elevated (01/2018) Labs done in [facility], Currently taking Etoricoxib , perscscrib ed from [facility], rajiv hernandez is aware. better but persistent Anemia 226156717 D64.9 H/H 10.2 and 33 (01/2018). Continue to monitor yearly. Depression screening 171 364421 Z13.89 depression screening tool administer ed, entered into emr, scored and discussed, time greater than 7.5 minutes [id number] Lopez Beavers MD Rheumatol [facility], [facility] [address] [facility] [place] [address] 06/25/2018 15:59:56 06/25/2018 16:33:47 Ankylosing spondylitis 4436699 M45.0 Far advanced ankylosing spondyliti s with fusion of virtually the whole spine. 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 She has not had any know extra-ariana cular involvemen t with , though she does tell me of some calcium in her eye. I wonder if in the remote past she had uveitis. Over past 2 years, she feels as if she is losing function. Now needs to cross legs in order to put on socks. She does not have a lot of pain. She says she does stretching exercises but has only attended one PT session as she felt she herself knew better what to do. Went to PT session basically to document ROM. Says considerab ly improved with the etoricoxib . It is better tolerated than the etodolac. She feels more flexible and comfortabl e. If not significan tly improved, next step would be trial of Humira. Check quantifero n gold in anticipati on. (Thinks both mother and father had TB.): Result = NEGATIVE. Return 6 mo Eruption 167066017 R21 itchy rash forearms. Very little rash seen. 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 No recent labs. Elevated blood-pressure reading without diagnosis of hypertension 684687886 R03.0 BP higher than usual today. 158/88 when I repeated it.Told to make appt Primary Care to have it re-checked . [id number] Kenny Harrison MD , [facility], [address] [place] [address] 10/29/2018 10:42:17 10/29/2018 13:22:39 Hematochezia 189836604 K62.5 Patient presents with 2 episodes of painless hematochez ia within 2 weeks. No dizziness or lightheade dness. No diarrhea. Denies constipati on. Fairly regular with BM 2-3 x/day for many years. No abdominal pain. Has a non-tender external hemorrhoid . Undergone screening colonoscop y in 03/2014 which was unremarkab le other than diverticul osis and internal hemorrhoid s. Recommende d to repeat in 10 years. Suspect internal hemorrhoid s. Some weight loss. Will monitor. Anoscopy deferred. Recommende d to try Anusol suppositor y. If recurrence after the course, will refer back to GI for further evaluation . Advised to contact the clinic with any concerns. [id number] Kanika Dow DO , [facility], [address] [place] [address] 11/01/2019 10:14:09 11/07/2019 09:17:52 Laryngopharyngeal reflux 008785229 K21.9 Trial for 2 weeks of pepcid, if no improvemen t please call the office. Ulcer of mouth 77001897 K12.1 Painless, started 2 weeks ago. Pt unable to send pictures of tongue via email. In order to not delay care- pt advised to see dentist now which likely can evaluate her more quickly than ENT, however will place referral now to ENT to get appointmen t scheduled. Pt is former smoker. [id number] Lopez Beavers MD Rheumatol [place], [facility] [address] [facility] [place] [address] 12/09/2019 07:57:56 12/12/2019 07:19:03 Ankylosing spondylitis 1399442 M45.0 Far advanced ankylosing spondyliti s with fusion of virtually the whole spine. 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 She has not had any know extra-ariana cular involvemen t with , though she does tell me of some calcium in her eye. I wonder if in the remote past she had uveitis. Over past 2 years, she feels as if she is losing function. Now needs to cross legs in order to put on socks. She does not have a lot of pain. She says she does stretching exercises but has only attended one PT session as she felt she herself knew better what to do. Went to PT session basically to document ROM. Says considerab ly improved with the etoricoxib . It is better tolerated than the etodolac. She feels more flexible and comfortabl e. If not significan tly improved, next step would be trial of Humira. Check quantifero n gold in anticipati on. (Thinks both mother and father had TB.): Result = NEGATIVE. Return 6 mo Gastroesop hageal reflux disease 594558887 K21.9 Osteoporosis 99785915 M8 1.0 Mild osteoporos is on recent BMD. R femoral neck -2.8 Patient is resistant to taking medication . Fracture risk not extreme. Weight bearing exercise. Vit D supplement ation.Repe at BMD scheduled for 2019. [id number] Kenny Harrison MD , [facility], [address] [place] [address] 04/02/2020 10:44:10 04/09/2020 13:55:48 Benign paroxysmal positional vertigo 521484006 H81.10 Patient with clinical presentati on of BPPV. Non-focal exam on virtual video evaluation . Discussed ample hydration. No URI symptoms. Discussed home self treatment options. Saba-Fco off exercises e-mailed to patient. Also discussed about PT evaluation , but would like to defer. Would avoid medication at this time, but will consider Meclizine if persistent symptoms. Indication s for UC/ER use reviewed. Follow up in 6 months for [place]. [id number] Gwen Enriquez MD Rheumatol [facility], [address] [address] 06/04/2020 07:52:23 06/04/2020 09:36:15 Ankylosing spondylitis 2501924 M45.0 I discussed the disease in details with the patient and the comorbitid ies. Patient states that she does not want to start any new medication s as she thinks she is doing well. Side effects of medication s and consequenc es of not taking themedicat ions were discussed with the patient and she still reluctant on trying Humira or any other meds. She states that he insurance will not cover it so I told her that we can try and see, and we can appeal if it does not cover it but the patient did not want to. Continue currents meds. 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 Side effects discussed with the patient, including but not limited to: allergic reaction, cytopenias , elevated liver enzymes, gastrointe stinal discomfort , lung disease, malignanci es, oral ulcers, hair loss, congenital abnormalit ies, contracept ion discussed with the patient. Patient counselled that he will need regular blood testing to monitor for the side effects. Patient verbalized understand ing.Check labs, reassess in 6 months or sooner if needed. If patient decides to start therapy sooner, she will contact the office. Continue stretching exercises. Osteoporosis 04936541 M8 1.0 Counselled about results and need to start therapy with Fosamax. Patient reluctant and smith snot want treatment. Counselled to take calcium and vitamin D, she stated she will get them over the counter. Patient states that she does not want to change her lifestyle by taking new meds. Weight bearing exercise. Risk of frcatures and consequenc es extensivel y discussed with patient. [id number] Bobby Magana MD [facility], [facility] [address] [place] [address] 09/03/2020 10:01:18 09/03/2020 12:37:23 [id number] Gwen Enriquez MD Rheumatol [place], [facility] [address] [place] [address] 12/10/2020 12:42:41 12/10/2020 13:37:27 Ankylosing spondylitis 0709429 M45.0 Patient states that she does not want to start any new medication s as she thinks she is doing well.She understand s the comorbidit ies of her condition. Continue currents meds. Patient informed about the care home side effects of NSAIDs and infomed about her anemia and elevated inflammato ry markers. If patient decides to start therapy sooner, she will contact the office. Continue stretching exercises. Monitor kidney function.C OVID booster discussed and patient does not want to take it.RTC in 8 months or sooner if needed. Osteoporosis 12066649 M8 1.0 Patient reluctant and does not want any treatment except for the vitamin D. Patient states that she does not want to change her lifestyle by taking new meds. Weight bearing exercise. Patient understand s the risk of fractures. [id number] Che Coburn MD , [facility], [address] [place] [address] 04/16/2021 09:55:15 04/18/2021 07:51:52 Adult health examination 895258685 Z00.00 Consider see a dentist, and get the shingles vacine. you do not need another pap Counseling 007436993 Z71 .9 including cardiovasc ular risk reduction counseling Depression screening 171 163007 Z13.31 depression screening tool administer ed, entered into emr, scored and discussed, time greater than 7.5 minutes Screening for alcohol abuse 208615829 Z13.39 Neg Screening mammography 24 102648 Z12.31 Atopic dermatitis 577577 01 L20.9 Ankylosing spondylitis 6095608 M45.0 As per rheumatolo gy [id number] Gwen Enriquez MD Rheumatol [facility], [facility] [address] [place] [address] 07/29/2021 12:42:23 08/02/2021 06:26:39 Ankylosing spondylitis 5171522 M45.0 Patient states that she is agreeable to start on biological s if it is covered by her insurance. She understand s the comorbidit ies of her condition. Will start Humira. If not covered, will considered infusions. Continue stretching exercises. Check labs. Side effects of Humira discussed with the patient, including but not limited to: injection site reactions, increased incidence of usual infections , serious infections (like TB), malignanci es, allergic reaction, new onset psoriasis, demyelinat ing disease, heart failure, lupus-like syndrome, cytopenias . Patient counselled to stop the medication if fever or any other sign of infection and call her PCP or our office right away. Patient instructed not to have any live vaccines. Patient verbalized understand ing. Fatigue 44249953 R53.83 Check labs.Patie nt to follow with her pcp also. [id number] Che Coburn MD , [facility], [address] [place] [address] 04/18/2022 10:16:10 04/18/2022 13:42:50 Adult health examination 447064456 Z00.00 Good general exam today. Please consider getting the new Covid booster Depression screening 171 Z13.31 depression screening tool administer ed Screening for alcohol abuse 843410648 Z13.39 Neg Mixed hyperlipidemia 267 218188 E78.2 your LDL, or bad cholestero l is very high (196). You could consider taking a cholestero l lowering medication Vaccination not done 756 4911883 9108 Z28.9 declined flu Mass of left breast 1224 555338 3414185 N63.20 I recommend ultrasound and mammogram; you decline. Please come back for recheck to see if lump is changing. Possibilit y of a tumor, discussed Osteoporosis 32267969 M8 1.0 Lets get a follow-up study and see where things are at. You have declined medication in the past Atopic dermatitis 830079 [address] Parker's note Ankylosing spondylitis 1196961 M45.0 I can refill your meds until you connect with new rheumatolo [facility] [id number] Che Coburn MD , [facility], [address] [place] [address] 05/07/2023 09:27:50 05/07/2023 16:12:10 Adult health examination 988112242 Z00.00 Good general exam today. Please consider getting the new Covid booster Depression screening 171 954810 Z13.31 depression screening tool administer ed Screening for alcohol abuse 388692529 Z13.39 Alcohol use screening tool administer ed Bilateral subjective pulsatile tinnitus of ears 1359846990 975104 H93.A3 Ankylosing spondylitis 9931749 M45.0 Managed by [facility] in [place] Osteoporosis 65177931 M8 1.0 you are reviewing treatment options with your jose steele Health Concerns Section Related Observation LastModified by Organization Detai ls LastModified Time None Recorded Concern Status LastModified by Organization Details LastModified Time None Recorded Advance Directives Directive None Recorded Payers Encounter Date Sequence Insurance Name Policy Number Policy Farr Covered Member ID Farr Member ID Guarantor Name 12/10/2020 1 [place] PPO) [id number] Adarsh Aracelis Fan 72 Adarsh-Aracelis Fan 04/16/2021 1 [place] PPO) [id number] Adarsh Aracelis Fan [id number] Adarsh-Aracelis Fan 07/29/2021 1 [place] PPO) [id number] Adarsh Aracelis Fan [id number] Adarsh-Aracelis Fan 04/18/2022 1 [place] P[place]) [id number] Adarsh Aracelis Fan [id number] Adarsh-Aracelis Fan 05/07/2023 1 [place] PPO) [id number] Adarsh Aracelis Fan [id number] Adarsh-Aracelis Fan Notes Date Note Type Note Provider Name and Address Organization Details Recorded Time 12/10/2020 text/html Patient is 65 y old female following-up on ankylosing spondylitis. Patient states that she feels better after she takes etoricoxib 60 mg/d. She has a long standing history of ankylosing spondylitis. She has always been resistant on taking medications. She denies pain at night or morning stiffness.She is tolerating the medications, no side effects reported. Labs reviewed: elevated ESR, anemia.Bone density: osteoporosis. As per previous office visit with Dr. Beavers: This is a 64-year-old woman with ankylosing spondylitis. She has findings of advanced fusion of the spine with some residual neck movement. The patient has a tendency to minimize symptoms and resists recommendations for therapeutic change. Over the last couple of years she has gradually been losing ROM, gradual increase in painful symptoms. Does not specifically note prominent nocturnal pain or AM stiffness.When in [place] given etoricoxib 60 mg/d which she has found quite helpful and it is well tolerated (other NSAIDs caused Gi distress). She gets it from [facility]. Last visit I had noted loss in ROM at hips. She declined PT. She has had acupuncture sessions which she says took care of the problem. It's all better . She does c/o of some reflux symptoms. She was seen for this in Primary Care a month ago, advised to take Pepcid, but she has not done so. Hx of osteoporosis by scan 2016. Declined treatment at that time. Otf Enriquez MD [address] [place] [address], [phone], [facility] 12/10/2020 13:30:45 04/16/2021 text/html Physical Exam/FemaleReported bypatient.PHAPatient is here for a Wellness Visit. She describes her health status as fair. Patient's health is the same as last year.Risk Assessment and Lifestyle Change Counseling 65+ (Medicare)Reported bypatient.Exercise counseling:Discussed the importance of daily physical activity; Housework 04/16/21Worried about her skin. Using antibiotic and cortisone, not really helping. Atopic dermatitis. Worse in winter.Sees rheum for .Takes medication that she gets from [place] because too expensive here.Had pap 4-5 years ago here and in [facility], normal. One partner x years. 04/28/1962yo female presenting for Wellness visit. Pt would like to have less pain, arthritis pains, pelvis mostly, worse with the weather, has ankylosing spondylitis but helps spine not pelvis, did do physical therapy, not doing exercises, walks 3-4 times a week, eating healthy, gets a lot of vegetables, no dairy. Recent trip to [facility] for 2 months. Saw doctors and had labs, mammo and pap. Che Coburn MD [address] [place] [address], [phone], [facility] 04/16/2021 16:52:10 07/29/2021 text/html Patient is 65 y old female following-up on ankylosing spondylitis. Patient states that she feels very tired. This is kind of new.When she is so tired , her eyes cannot open.She is ok in the morning and about 2-3 pm she feels she needs a nap.This has been happening for 2 months. Appetite ok, no fever no weight loss.Patient is sleeping well. She gets pain in her back, chronic as before, it has not changes.Patient takes etoricoxib 60 mg/d and it helps her pain. No new labs. Previous visit on 12/10/20: Patient is 65 y old female following-up on ankylosing spondylitis. Patient states that she feels better after she takes etoricoxib 60 mg/d. She has a long standing history of ankylosing spondylitis. She has always been resistant on taking medications. She denies pain at night or morning stiffness.She is tolerating the medications, no side effects reported. Labs reviewed: elevated ESR, anemia.Bone density: osteoporosis. As per previous office visit with Dr. Beavers: This is a 64-year-old woman with ankylosing spondylitis. She has findings of advanced fusion of the spine with some residual neck movement. The patient has a tendency to minimize symptoms and resists recommendations for therapeutic change. Over the last couple of years she has gradually been losing ROM, gradual increase in painful symptoms. Does not specifically note prominent nocturnal pain or AM stiffness.When in [place] given etoricoxib 60 mg/d which she has found quite helpful and it is well tolerated (other NSAIDs caused Gi distress). She gets it from [facility]. Last visit I had noted loss in ROM at hips. She declined PT. She has had acupuncture sessions which she says took care of the problem. It's all better . She does c/o of some reflux symptoms. She was seen for this in Primary Care a month ago, advised to take Pepcid, but she has not done so. Hx of osteoporosis by scan 2016. Declined treatment at that time. Otf Enriquez MD [address] [place] [address], [phone], [facility] 07/29/2021 14:15:26 04/18/2022 text/html 04/18/22Saw derm, not helpful. Wondered if related to . Dr. 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 Patches of discolored, sometimes scaly skin near ear, above lip and corner of mouth. Given mupirocin and steroid.On going Pain, low energy. Doing less. Typical of her ASDoes not have a communication and outreach manager now that Dr. Enriquez leftDeclines Covid booster, other things 04/16/21Worried about her skin. Using antibiotic and cortisone, not really helping. Atopic dermatitis. Worse in winter.Sees rheum for .Takes medication that she gets from [place] because too expensive here.Had pap 4-5 years ago here and in [place], normal. One partner x years. Che Coburn MD [address] [place] [address], [phone], [facility] 04/19/2022 09:06:39 04/18/2022 text/html Physical Exam/FemaleReported bypatient.PHAPatient is here for a Wellness Visit. She describes her health status as fair. Patient's health is the same as last year.Risk Assessment and Lifestyle Change Counseling 65+ (Medicare)Reported bypatient.Coronary Artery Disease Risk Assessment:Family History of Coronary Artery Disease Breast Cancer Risk Assessment:No family history of breast cancer Colon Cancer Risk Assessment:No family history of pre cancerous colon polyps or cancer Exercise counseling:Discussed the importance of daily physical activity; Housework Che Coburn MD [address] [place] [address], [phone], [facility] 04/19/2022 09:06:39 05/07/2023 text/html Risk Assessment and Lifestyle Change Counseling 65+ (Medicare)Reported bypatient.Exercise counseling:Discussed the importance of daily physical activity Wellness. States that she gets an IV infusion Q 2 months from her neurologist. had stroke; wants me to check carotids. Hears woosh on Left, more with exercise. Che Coburn MD [address] [place] [address], [phone], [facility] 05/07/2023 20:33:32 OBGyn Episode No OBEpisode recorded.
== END 2024-08-10 13:08 | disposition home or self-care (01) ==
LOC: HO.RHE 12:23
PROVIDERS: PCP Family Medicine; Visit Provider Student in an Organized Health Care Education/Training Program
DX: M45.0 Ankylosing spondylitis of multiple sites in spine (principal); M81.0 Age-related osteoporosis without current pathological fracture; Z51.81 Encounter for therapeutic drug level monitoring; Z79.620 Long term (current) use of immunosuppressive biologic
CPT/HCPCS: 99214; G2211

== ENCOUNTER → 2024-08-10 12:23 | Outpatient (BNVA) | payer MEDICARE, SELFPAY | PROVIDERS: PCP Family Medicine; Visit Provider Student in an Organized Health Care Education/Training Program | DX: M81.0 Age-related osteoporosis without current pathological fracture (principal); M45.0 Ankylosing spondylitis of multiple sites in spine; Z79.620 Long term (current) use of immunosuppressive biologic; Z51.81 Encounter for therapeutic drug level monitoring | CPT/HCPCS: 96372; 99212; J0897 ==

== ENCOUNTER 2025-02-20 12:22 | Outpatient (REF) | payer MEDICARE, SELFPAY ==
[2025-02-20 12:54] LABS: MANUAL DIFF FLAG NO
[2025-02-20 13:51] LABS: Hematocrit 33.5 % (37.0-47.0); Hemoglobin 10.8 g/dl (12.0-16.0); Imm Gran Abs Auto 0.04 X10*3/uL (0.00-0.03); Imm Gran Pct Auto 0.4 % (0.0-0.4); Lymphocytes Absolute Auto 3.5 X10*3/uL (1.2-4.9); Mean Corpuscular HGB Conc 32.2 g/dl (31.0-35.0); Mean Corpuscular Hemoglobin 30.2 pg (27.0-33.0); Mean Corpuscular Volume 93.6 fL (80.0-98.0); NRBC Abs Auto 0.000 X10*3/uL (0.0-0.012); NRBC Pct Auto 0.0 /100WBC (0.0-0.2); Platelet Count 348 X10*3/uL (160-400); Red Blood Count 3.58 X10*6/uL (4.20-5.50); White Blood Count 9.0 X10*3/uL (4.8-10.8)
[2025-02-20 14:20] LABS: Alanine Aminotransferase 12 U/L (0-31); Albumin Level 3.9 g/dL (3.5-5.0); Alkaline Phosphatase 57 U/L (39-117); Anion Gap 13 (12-20); Aspartate Amino Transferase 24 U/L (5-31); Blood Urea Nitrogen 16 mg/dL (9-16); Calcium 8.8 mg/dL (8.4-10.2); Carbon Dioxide 27 mmol/L (22-29); Chloride 102 mmol/L (96-108); Estimated Glomerular Filt Rate > 60; Potassium 4.1 mmol/L (3.3-5.1); Sodium 138 mmol/L (135-145); Total Protein 7.0 g/dL (6.5-8.0)
--- OUTSIDE RECORDS SUMMARY | 2025-02-20 16:05 | XMS_ITS | Encounter Summary ---
Author Organization [facility] Address [address] [place] [address] Phone Care Team Providers Care Dry Room Operator Name Role Phone Kenny Harrison MD Unavailable Kenny Harrison MD Primary Care Provider Encounter Details Date Type Department Care Team (Late st Contact Info) Description 03/12/2022 Transcribe Orders [facility] Specimen Processing [address] [place] [address] Karen Parker MD [address] [place] [address] Non-bullous impetigo Social History Tobacco Use Types Packs/Day Years Used Date Smoking Tobacco: Never Smokeless Tobacco: Never Alcohol Use Standard Drinks/Week Comments Never 0 (1 standard drink = 0.6 oz pur e alcohol) Comments No Sex and Gender Information Value Date Recorded Sex Assigned at Female 08/31/2020 1:30 PM EDT Legal Sex Female 6:59 AM EDT Gender Identity Female 08/31/2020 1:30 PM EDT Sexual Orientation Straight 08/31/2020 1: 30 PM EDT documented as of this encounter Plan of Treatment Not on file documented as of this encounter Procedures Procedure Name Priority Date/Time Associated Diagnosis Comments WOUND CULTURE/SMEAR Routine 03/12/2022 2 :00 PM EST Non-bullous impetigo documented in this encounter Results * (ABNORMAL) Wound culture/smear (03/12/2022 2:00 PM EST) Special Requests None 03/12/2022 4:42 PM EST [facility] GRAM STAIN NO CELLS OR ORGANISMS 03/13/2022 10:49 AM [facility] Wound Culture/Smear Rare STAPHYLOCOCCUS AUREUS(A) 03/14/2022 11:50 AM [facility] Wound Culture/Smear Rare COAGULASE NEGATIVE STAPHYLOCOCCUS(A) 03/14/2022 11:50 AM [facility] Other (Wound) 03/12/2022 2:0 0 PM EST 03/12/2022 4:43 PM EST Comment:LEFT ORAL COMMISSURE AND LEFT LIP Narrative Organism Antibiotic Method Susceptibility Staphylococcus aureus Penicillin G HIMA METHOD >=0.5: Resistant Staphylococcus aureus Clindamycin HIMA METHOD <=0.25: Susceptible Staphylococcus aureus Erythromycin HIMA METHOD <=0.25: Susceptible Staphylococcus aureus Gentamicin HIMA METHOD <=0.5: Susceptible Staphylococcus aureus inducible clindamycin HIMA METHOD Negative Staphylococcus aureus Levofloxacin HIMA METHOD 0.25: Susceptible Staphylococcus aureus Oxacillin(methicillin) HIMA METHO D 0.5: Susceptible Staphylococcus aureus Rifampin HIMA METHOD <=0.5: Susceptible Staphylococcus aureus Tetracycline HIMA METHOD <=1: Susceptible Staphylococcus aureus Trimethoprim/sulfamethoxazole KS C METHOD <=10: Susceptible Staphylococcus aureus Vancomycin HIMA METHOD 1: Susceptible Staphylococcus aureus Cefoxitin HIMA METHOD Negative Staphylococcus aureus Amoxicillin + Clavulanate HIMA ME THOD Susceptible Staphylococcus aureus Ampicillin + Sulbactam HIMA METHO D Susceptible Staphylococcus aureus Cefuroxime HIMA METHOD Susceptible Staphylococcus aureus Cefotaxime HIMA METHOD Susceptible Staphylococcus aureus Ceftriaxone HIMA METHOD Susceptible Comment: Karen Parker MD LAB MICROBIOLOGY CULTURE OR DERABLES Final Result Performing Organization Address City/State/[facility] Co de Phone Number [facility] [address] [place] [address] documented in this encounter Visit Diagnoses Diagnosis Non-bullous impetigo documented in this encounter Care Teams Dry Room Operator Relationship Specialty Start Date End Date Kenny Harrison MD [address] [place], [place] [address] [place] [address] [email or web address] PCP - General Family Medicine 09/03/20 Kenny Harrison MD [address] [facility] [address] [place] [address] [email or web address] 08/29/20 documented as of this encounter Additional Source Comments The information contained in this document represents components of the legal health record. It is not the complete legal health record.[facility]
--- OUTSIDE RECORDS SUMMARY | 2025-02-20 16:05 | XMS_ITS | Encounter Summary ---
Author Organization [facility] Address [address] [place] [address] Phone Care Team Providers Care Bevel Gear Generator Operator Name Role Phone Kenny Harrison MD Unavailable Kenny Harrison MD Primary Care Provider [phone] Encounter Details Date Type Department Care Team (Late st Contact Info) Description 04/16/2021 Transcribe Orders Virtual Department 30 [place] [address] Che Coburn MD [address] [place] [address] [email or web address] Breast screening (Primary Dx) Social History Tobacco Use Types Packs/Day Years [...] on file documented as of this encounter Visit Diagnoses Diagnosis Breast screening- Primary Breast screening, unspecified documented in this encounter Care Teams Bevel Gear Generator Operator Relationship Specialty Start Date End Date Kenny Harrison MD [address] [facility] [place] [address] [email or web address] PCP - General Family Medicine 09/03/20 Kenny Harrison MD [address] [facility] [address] [place] [address] [email or web address] 08/29/20 documented as of this encounter Additional Source Comments The information contained in this document represents components of the legal health record. It is not the complete legal health record.[facility]
--- OUTSIDE RECORDS SUMMARY | 2025-02-20 16:05 | XMS_ITS | Encounter Summary ---
Author Organization [facility] Address [address] [place] [address] [place] [address] Phone Care Team Providers Care Gimp Tacker Name Role Phone Kenny Harrison MD Primary Care Provider [phone] Unknown, Unknown Primary Care Provider Kenny Aguilar MD Unavailable Kenny Harrison MD Primary Care Provider [phone] Encounter Details Date Type Department Care Team (Late st Contact Info) Description 11/21/2019 Procedure Pass [facility], Ct Scan - [address] [address] Social History Tobacco Use Types Packs/Day Years [...] PM EDT documented as of this encounter Functional Status documented as of this encounter Plan of Treatment Not on file documented as of this encounter Visit Diagnoses Not on filedocumented in this encounter Care Teams Gimp Tacker Relationship Specialty Start Date End Date Kenny Harrison MD [address] [facility] [place] [phone] [email or web address] PCP - General Family Medicine 11/21/19 08/28/20 Unknown, Unknown, PCP - General 08/29/20 09/02/20 Kenny Harrison MD [address] [facility] [place] [phone] [email or web address] PCP - General Family Medicine 09/03/20 Kenny Harrison MD [address] [facility] [place] [address] [email or web address] 08/29/20 documented as of this encounter Additional Source Comments The information contained in this document represents components of the legal health record. It is not the complete legal health record.[facility]
--- OUTSIDE RECORDS SUMMARY | 2025-02-20 16:05 | XMS_ITS | Encounter Summary ---
Author Organization [facility] Address [address] [facility] [address] [place] [address] Phone Care Team Providers Care Metal Fitter Name Role Phone Kenny Harrison MD Primary Care Provider [phone] Unknown, Unknown Primary Care Provider Kenny Aguilar MD Unavailable Kenny Harrison MD Primary Care Provider [phone] Encounter Details Date Type Department Care Team (Latest Contact Info) Description 08/27/2020 Transcribe Orders Virtual Department [address] [place] [address] Bobby Magana MD [address] [place] [address] [email or web address] Pre-procedure lab exam (Primary Dx) Social History Tobacco Use Types Packs/Day Years Used Date Smoking Tobacco: Never Assessed Comments No Sex and Gender Information Value Date Recorded Sex Assigned at Female 08/31/2020 1:30 PM EDT Legal Sex Female 6:59 AM EDT Gender Identity Female 08/31/2020 1:30 PM EDT Sexual Orientation Straight 08/31/2020 1: 30 PM EDT documented as of this encounter Plan of Treatment Not on file documented as of this encounter Results * COVID-19 PCR Order (09/01/2020 12:45 PM EDT) COVID-19 Comment [id number] [facility] COVID Testing Status Specimen received in analyzing lab. Results should be available within 24 to 48 hrs. [facility] 09/01/2020 12:4 5 PM EDT 09/01/2020 1:28 PM EDT Bobby Magana MD LAB GENERAL ORDERABLES Fin al Result [facility] [address] [place] [address] [address] documented in this encounter Visit Diagnoses Diagnosis Pre-procedure lab exam- Primary Pre-procedural laboratory examination documented in this encounter Care Teams Metal Fitter Relationship Specialty Start Date End Date Kenny Harrison MD [address] [place] [address] [email or web address] PCP - General Family Medicine 11/21/19 08/28/20 Unknown, Lizandro, MD PCP - General 08/29/20 09/02/20 Kenny Harrison MD [address] [place] [address] [email or web address] PCP - General Family Medicine 09/03/20 Kenny Harrison MD [address] [place] [address] [email or web address] 08/29/20 documented as of this encounter Additional Source Comments The information contained in this document represents components of the legal health record. It is not the complete legal health record.[facility]
--- OUTSIDE RECORDS SUMMARY | 2025-02-20 16:05 | XMS_ITS | Encounter Summary ---
Author Organization [facility] Address [address] [place] [address] [place] [address] Phone Care Team Providers Care Leadership Development Consultant Name Role Phone Kenny Harrison MD Primary Care Provider [phone] Unknown, Unknown Primary Care Provider Kenny Aguilar MD Unavailable Kenny Harrison MD Primary Care Provider [phone] Encounter Details Date Type Department Care Team (Late st Contact Info) Description 11/21/2019 Procedure Pass [facility], Ct Scan - [address] [address] Social History Tobacco Use Types Packs/Day Years [...] on filedocumented in this encounter Care Teams Leadership Development Consultant Relationship Specialty Start Date End Date Kenny Harrison MD [address] [facility] [place] [address] [email or web address] PCP - General Family Medicine 11/21/19 08/28/20 Unknown, Unknown, PCP - General 08/29/20 09/02/20 Kenny Harrison MD [address] [facility] [place] [address] [email or web address] PCP - General Family Medicine 09/03/20 Kenny Harrison MD [address] [facility] [place] [address] [email or web address] 08/29/20 documented as of this encounter Additional Source Comments The information contained in this document represents components of the legal health record. It is not the complete legal health record.[facility]
--- OUTSIDE RECORDS SUMMARY | 2025-02-20 16:05 | XMS_ITS | Clinical Summary ---
Author Organization [facility] Address [address] [facility] [address] [place] [address] Phone Care Team Providers Care Event Mgr Name Role Phone Kenny Harrison MD Unavailable Kenny Harrison MD Primary Care Provider [phone] Allergies Active Allergy Reactions Criticality Noted Date Comments Penicillins 11/21/2019 Medications morphine (MSIR) 15 MG tablet Partial fill ok Take 0.5 to 1 tablet by mouth every 4 hours as needed for breakthrough pain. 10 tablet 0 Active Active Problems No known active problems Immunizations Immunization Administration Dates Next Due Tdap 11/21/2019 Social History Tobacco Use Types Packs/Day Years Used Date Smoking Tobacco: Never Smokeless Tobacco: Never Alcohol Use Standard Drinks/Week Comments Never 0 (1 standard drink = 0.6 oz pur e alcohol) Education Answer Date Recorded Are you interested in more education? Not on trupti e 07/19/2022 Are you concerned about learning? Not on file 07/19/2022 No 07/19/2022 No 07/19/2022 Digital Access Answer Date Recorded No 08/19/2022 No 08/19/2022 Reliable internet access at home? Not on file 08/19/2022 Device with a working camera? Not on file Comments No Sex and Gender Information Value Date Recorded Sex Assigned at Female 08/31/2020 1:30 PM EDT Legal Sex Female 6:59 AM EDT Gender Identity Female 08/31/2020 1:30 PM EDT Sexual Orientation Straight 08/31/2020 1: 30 PM EDT Last Filed Vital Signs Vital Sign Reading Time Taken Comments Blood Pressure 168/75 11/21/2019 2:00 PM EDT Pulse 78 11/21/2019 1:50 PM EDT Temperature 36.7 C (98 F) 11/21/2019 1:50 PM EDT Respiratory Rate 18 11/21/2019 1:50 PM EDT Oxygen Saturation 100% 11/21/2019 2:42 PM EDT Inhaled Oxygen Concentration - - Weight 44.5 kg (98 lb) 11/22/2019 10:29 AM EDT Height 154.9 cm (5' 1 ) 11/22/2019 10:29 AM EDT Body Mass Index 18.52 11/22/2019 10:29 AM EDT Plan of Treatment Health Maintenance Due Date Last Done Comments LIPID PANEL 1955 DEPRESSION SCREENING 1967 HEPATITIS C SCREENING 1973 MAMMOGRAM 1995 COLOGUARD 02/10/2000 COLONOSCOPY 02/10/2000 COLORECTAL CANCER SCREENING 02/10/2000 FIT TEST 02/10/2000 FOBT 02/10/2000 SIGMOIDOSCOPY 02/10/2000 VIRTUAL COLONOSCOPY 02/10/2000 PNEUMOCOCCAL VACCINES (50+ y ears) (1 of 1 - PCV) 2005 ZOSTER VACCINES (1 of 2) 2005 OSTEOPOROSIS SCREENING INITI AL (ONE-TIME) 02/10/2020 INFLUENZA VACCINE (#1) 2024 COVID-19 VACCINE (2 - 2024-2 6 season) 2024 06/02/2020 Adult Td,Tdap Booster 11/20/2029 11/21/2019 RSV VACCINE (1 - 1-dose 75+ series) 2030 SMOKING STATUS SCREENING (On ce After 26 Yrs) Completed 11/22/2019 HEPATITIS A VACCINES Aged Out No long er eligible based on patient's age to complete this topic HIB VACCINES Aged Out No longer eligi ble based on patient's age to complete this topic MENINGOCOCCAL VACCINES (ACWY) Aged Out No longer eligible based on patient's age to complete this topic MENINGOCOCCAL VACCINES (B) Aged Out N o longer eligible based on patient's age to complete this topic Medical Devices Not on file Insurance [facility] MEDICARE PPO BLUE REPLACEMENT [facility] MEDICARE PPO BLUE [facility]PLACEMENT [facility] MEDICARE PPO BLUE [facility]PLACEMENT [facility] MEDICARE PPO BLUE REPLACEMENT [facility] MEDICARE PPO BLUE REPLACEMENT [facility] MEDICARE PPO BLUE REPLACEMENT [facility] MEDICARE PPO BLUE REPLACEMENT [facility] MEDICARE PPO BLUE REPLACEMENT [facility] MEDICARE PPO BLUE REPLACEMENT Care Teams Event Mgr Relationship Specialty Start Date End Date Kenny Harrison MD [address] [place] [address] [address] [place] [phone] [email or web address] PCP - General Family Medicine 09/03/20 Kenny Harrison MD [address] [facility] [address] [place] [address] [email or web address] 08/29/20 Additional Source Comments The information contained in this document represents components of the legal health record. It is not the complete legal health record.[facility]
--- OUTSIDE RECORDS SUMMARY | 2025-02-20 16:05 | XMS_ITS | Encounter Summary ---
Author Organization [facility] Address [address] [facility] [address] [place] [address] Phone Care Team Providers Care Platen Grinder Name Role Phone Kenny Harrison MD Unavailable Kenny Harrison MD Primary Care Provider [phone] Encounter Details Date Type Department Care Team (Late st Contact Info) Description 04/16/2022 Transcribe Orders Virtual Department [address] [place] [address] Che Coburn MD [address] [place] [address] [email or web address] Breast screening (Primary Dx) Social History Tobacco [...] unspecified documented in this encounter Care Teams Platen Grinder Relationship Specialty Start Date End Date Kenny Harrison MD [address] [facility] [place] [address] [email or web address] PCP - General Family Medicine 09/03/20 Kenny Harrison MD [address] [facility] [address] [place] [address] [email or web address] 08/29/20 documented as of this encounter Additional Source Comments The information contained in this document represents components of the legal health record. It is not the complete legal health record.[facility]
[2025-02-24 11:24] LABS: Vitamin D 25-OH, D2 <4 ng/mL; Vitamin D 25-OH, D3 46 ng/mL; Vitamin D 25-OH, Total 46 ng/mL (30-100)
== END 2025-02-20 12:23 | disposition home or self-care (01) ==
LOC: HO.LAB 12:22
PROVIDERS: Visit Provider Student in an Organized Health Care Education/Training Program
DX: M45.0 Ankylosing spondylitis of multiple sites in spine (principal); E55.9 Vitamin D deficiency, unspecified
CPT/HCPCS: 36415; 80053; 82306; 85025; 85652; 86140

== ENCOUNTER 2025-03-02 09:55 | Outpatient (REF) | payer MEDICARE, SELFPAY ==
--- NOTE | ~2025-03-02 | MM_ITS ---
EXAMINATION: DXA BONE DENSITY AXIAL HISTORY: M81.0 - Age-related osteoporosis without current pathological fracture TECHNIQUE: [employer] Dual energy absorptiometry (DEXA) of the lumbar spine, total left hip, and femoral neck was performed. COMPARISON: Comparison is made with the prior examination dated 11/12/2022. FINDINGS: The bone mineral density of the lumbar spine is 0.689 g/cm2, corresponding to a T-score of -4.3, and a Z-score of -2.0. This is indicative of osteoporosis. This represents a BMD change of 16.0% compared to the prior exam. This is not statistically significant. The bone mineral density of the left total hip is 0.805 g/cm2, corresponding to a T-score of -1.6, and a Z-score of 0.3. This is indicative of osteopenia. This represents a BMD change of 6.6% compared to the prior exam. This is statistically significant. The bone mineral density of the left femoral neck is 0.735 g/cm2, corresponding to a T-score of -2.2, and a Z-score of -0.1. This is indicative of osteopenia. This represents a BMD change of 13.6% compared to the prior exam. MM/XR DEXA axial skeleton IMPRESSION: Based on bone mineral density, and according to World Health Organization (WHO) criteria, the diagnosis is consistent with osteoporosis. Statistically, 68% of repeat scans fall within 1 SD (+/- 0.010 g/cm2 for AP spine L1-L4) and 1 SD (+/- 0.012 g/cm2 for femur total) FRAX is a trademark of the [employer] Met[employer] Disease, a World Health Organization (WHO) Collaborating Center. Electronically signed by: Juan Orlando MD 03/02/2025 10:27 AM [facility]
== END 2025-03-02 09:56 | disposition home or self-care (01) ==
LOC: HO.MAMMO 09:55
PROVIDERS: Visit Provider Student in an Organized Health Care Education/Training Program
DX: M81.0 Age-related osteoporosis without current pathological fracture (principal)
CPT/HCPCS: 77080

== ENCOUNTER → 2025-03-02 10:30 | Outpatient (BNV) | payer MEDICARE, SELFPAY | PROVIDERS: Visit Provider Radiology Diagnostic Radiology | DX: E28.39 Other primary ovarian failure (principal) | CPT/HCPCS: 77080 ==